=== PATIENT | male | born 1975 | race Caucasian/White ===

== ENCOUNTER 2019-06-08 16:23 | Outpatient (REF) | payer SELFPAY | END 2019-06-08 16:24 | disposition home or self-care (01) | LOC: LAB 16:23 | PROVIDERS: Visit Provider Nurse Practitioner Family | DX: Z01.89 Encounter for other specified special examinations (principal) | CPT/HCPCS: 87086 ==

== ENCOUNTER 2019-06-11 09:26 | Outpatient (CLI) | payer SELFPAY ==
--- NOTE | 2019-06-11 | US_ITS ---
WS: [id number] ULTRASOUND RENAL TECHNIQUE: Ultrasound examination of both kidneys. CLINICAL INFORMATION: RIGHT FLANK PAIN COMPARISON: None. FINDINGS: RIGHT: Tiny nonobstructing calyceal tip calculi Right kidney is normal in size and appearance. Echogenicity: Normal. Hydronephrosis: None. Perinephric fluid: None. Right kidney measures: 10.3 cm x 5.1 cm x 5.2 cm. LEFT: Tiny nonobstructing calyceal tip calculi Left kidney is normal in size and appearance Echogenicity: Normal. Hydronephrosis: None Perinephric fluid: None. Left kidney measures: 10.9 cm x 5.2 cm x 5.5 cm. Normal visualized aorta. US/US renal BI* [id number] IMPRESSION: 1. Both kidneys are normal in appearance. No hydronephrosis. 2. Tiny nonobstructing bilateral calyceal tip calculi. 3. Normal bladder
== END 2019-06-11 09:27 | disposition home or self-care (01) ==
LOC: RADOUTREAD 15:32
PROVIDERS: Visit Provider Nurse Practitioner Family
DX: Z76.89 Persons encountering health services in other specified circumstances (principal)

== ENCOUNTER 2019-06-11 10:51 | Outpatient (CLI) | payer SELFPAY ==
--- NOTE | 2019-06-11 11:00 | CT_ITS ---
WS: [id number] CT ABDOMEN PELVIS TECHNIQUE: Noncontrast CT of the abdomen and pelvis with coronal and sagittal reformatted images. CLINICAL INFORMATION: BILAT FLANK PAIN, NEPHROLITHASIS COMPARISON: None. DLP: [id number] scans at [facility] use at least one of these dose optimization techniques: automat ed exposure control; mA and/or kV adjustment per patient size (includes targeted exams where dose is matched to clinical indication); or iterative reconstruction. FINDINGS: Patchy airspace infiltrate in right lower lobe consistent with pneumonia measuring 5.8 x 3.1 CM. Carl mmend follow-up to resolution. Left lung base is well aerated. Noncontrast liver is normal. Normal ga llbladder. Noncontrast spleen is normal. Normal noncontrast pancreas. Adrenal glands are normal. Norm al GE junction. Tiny bilateral calyceal tip calculi. No obstructing renal or ureteral calculi. No hydronephrosis. Nor mal bladder. Normal caliber abdominal aorta. No abdominal lymphadenopathy. No evidence of small or large bowel obstruction. Prior appendectomy. No abdominal lymphadenopathy. In cidental fat-containing umbilical hernia. No inguinal lymphadenopathy. CT/CT kidney stone [id number] IMPRESSION: 1. Patchy airspace infiltrate in right lower lobe measuring 5.8x 3.1 cm consis tent with pneumonia. Recommend follow-up to resolution. 2. Tiny bilateral subcentimeter calyceal tip calculi. No obstructing renal or ureteral calculi. 3. No hydronephrosis. Normal bladder. 4. Prior appendectomy. 5. No other significant findings.
== END 2019-06-11 10:52 | disposition home or self-care (01) ==
LOC: RADWPI 10:56
PROVIDERS: Visit Provider Physician Assistant
DX: N00-N99 Diseases of the genitourinary system (principal); R91.8 Other nonspecific abnormal finding of lung field; N20.0 Calculus of kidney
CPT/HCPCS: 74176

== ENCOUNTER 2020-10-25 10:19 | Outpatient (CLI) | payer SELFPAY ==
[2020-10-25 11:21] LABS: Mean Corpuscular HGB Conc 30.1 g/dL (30.0-36.0); Mean Corpuscular Hemoglobin 27.4 pg (28.0-34.0); Mean Corpuscular Volume 91.1 fL (80-94); Red Cell Distribution Width 20.1 % (12.1-15.1); White Blood Count 3.3 10^3/uL (4.0-10.0)
[2020-10-25 11:39] LABS: Hematocrit 17.3 % (42.0-52.0); Hemoglobin 5.2 g/dL (11.7-16.6); Platelet Count 11 10^3/cmm (130-400); Slide Review Slide Review Perform
[2020-10-25 11:45] LABS: Absolute Segmented Neutrophil 0.9 10/cmm (1.6-7.1); Eosinophils 1 %; Lymphocytes 30 %; Lymphocytes Absolute 1.1 10^3/cmm (1.2-3.4); Monocytes Absolute 0.2 10^3/cmm (0.1-0.6); Segmented Neutrophils 28 %; Total Cells Counted 100 (0-100)
[2020-10-25 11:46] LABS: Anisocytosis 2+; Poikilocytosis 1+
[2020-10-25 11:47] LABS: Absolute Neutrophil 1.9 10^3/cmm (1.4-6.5); Platelet Estimate Decreased (Normal); Schistocytes Trace
[2020-10-25 11:48] LABS: LAB Peripheral Smear Sent for Review
[2020-10-25 12:02] LABS: Erythrocyte Sedimentation Rate 97 mm/hr (0-10)
[2020-10-25 12:05] LABS: Alanine Aminotransferase 14 U/L (0-41); Albumin Level 4.3 g/dL (3.5-5.2); Alkaline Phosphatase 84 IU/L (40-130); Anion Gap 16.6 (5-19); Aspartate Amino Transferase 19 U/L (0-40); Blood Urea Nitrogen 13 mg/dL (6-20); Calcium 8.6 mg/dL (8.5-10.5); Carbon Dioxide 21 mmol/L (22-29); Chloride 103 mmol/L (98-107); Globulin 3.1 g/dL (1.3-4.6); Glomerular Filtration Rate 73.1 mL/min (90-130); Glucose 117 mg/dL (65-115); Iron 14 ug/dL (59-158); Lactate Dehydrogenase 337 U/L (135-225); Osmolality Calculated 285 mOsm/kg (285-295); Percent Saturation 6.5 % (20-50); Potassium 3.6 mmol/L (3.5-5.1); Sodium 137 mmol/L (136-145); Total Bilirubin 1.3 mg/dL (0.15-1.2); Total Iron Binding Capacity 214 mcg/dl; Total Protein 7.4 g/dL (6.6-8.7); Unsaturated Iron Binding 200 ug/dL (112-347)
[2020-10-25 12:20] LABS: Vitamin B12 276 pg/mL (232-1245)
[2020-10-25 12:29] LABS: Folate Level 8.5 ng/mL (4.5-32.2)
--- NOTE | 2020-10-25 13:49 | ONC CON_ITS ---
Dr. Camacho New Patient Note Patient: Aden Swain Unit #: [id number]: 1975 Dicatated By: Coleman Camacho M.D.Date of Visit: Oct 25, 2020 Onc MED New Patient/Consult Referring Physician: Natalie Brian Chief Complaint: Pancytopenia. History of Present Illness: This is a 45-year-old man with severe pancytopenia. He has been in good general health. He had presented yesterday to [facility] with complaints of shortness of breath and fatigue. His CBC showed severe pancytopenia. The hemoglobin was low at 5.1 g with hematocrit 16.0%. The red cell indices were in the low normal range. The white blood cell count was 2500 with a differential showing 71% neutrophils, 22% lymphocytes, and 5% monocytes. Platelet count was also very low at 11,000. Comprehensive metabolic profile showed normal renal function with BUN 14 and creatinine 0.99 mg/dL. Bilirubin was slightly elevated 1.3 mg/dL. The liver enzymes were normal. TSH was normal at 0.566 ???IU/mL. He has a history of atrial fibrillation for which he had previously undergone cardioversion and subsequently a cardiac ablation procedure. He also has some allergic rhinitis, but he has had no other ongoing medical illnesses. He says he first started getting short of breath as far back as a year and 1/2 to 2 years ago, but it has worsened significantly over the past 6 months. During that time his had a progressive decline in his energy and activity tolerance, though he has still been doing light work. His ECOG score is 1. He has good appetite. His weight is down about 20 pounds over the past 6 months, but it does tend to fluctuate. He has been running low-grade fever in the range of 99 to 100 degrees and he has had some associated chills and sweating. He had treatment for sinus infection at the beginning of the year and about 2 months ago he was given antibiotic therapy for an infected cyst on his neck. With his appointment yesterday he began on Bactrim for a new cyst in his lower back area. Along with the shortness of breath he has noticed palpitations and chest discomfort with activity. He has no GI/ complaints other than occasional heartburn. He has normal aches and pains , mainly in the knees. Lately he has had some headaches with activity and he has been lightheaded at times. He has no numbness/paresthesia or other focal neurologic symptoms. He has noticed easy bruising during the past 2 months. He has had no other bleeding manifestations. Past Medical History: His medical history includes allergic rhinitis and a history of atrial fibrillation. Past Surgical History: His surgical/procedural history includes cardiac ablation in 2013, cardioversion in 2013, open reduction of right hand fracture in 2012, and appendectomy in 2005. Medications: Bactrim DS 1 Tablet (of 800-160 mg) Oral b.i.d., NyQuil Severe+ Vapocool Liquid Oral PRN Allergies: No Known Allergies. Social History: Mr. Swain is . 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 He is a non-smoker. He does not drink alcohol. Family History: His parents are still living, both age 68. His father has hypertension and atrial fibrillation. Her mother has thyroid disease and was recently found to be anemic. A 44-year-old brother has diabetes and Crohn's disease. He has no other siblings. Review Of Symptoms: Constitutional - He has had progressive decline in energy/activity tolerance, but he is still working. His appetite is good. His weight is down over the past 6 months, but does tend to fluctuate. He has had low-grade fever in the range of 99 to 100 degrees. He has some associated chills and sweating. ECOG score is 1, Eyes - No change in vision, but he reportedly has cataracts, ENMT - No hearing loss or tinnitus. He had treatment for sinus infection at the beginning of the year No mouth sores. No sore throat or difficulty swallowing, Hematologic/Lymphatic - He has been bruising more easily for the past 2 months. He has had no other bleeding, Respiratory - He has had increasing shortness of breath. No cough. No pleuritic pain or hemoptysis, Cardiovascular - He has had palpitations and some chest discomfort with activity, Gastrointestinal - No nausea or vomiting. He has occasional heartburn. No diarrhea or constipation. No blood in the stool or black stools, Genitourinary (M) - No dysuria or hematuria. No urinary frequency. No urgency or incontinence, Musculoskeletal - He has normal aches and pains , mainly in the knees, Integumentary - No skin rash. He had antibiotic therapy for a cyst on his neck 2 months ago, and he yesterday he was started on antibiotic for a cyst on the lower back, Neurologic - Recently he has had some headaches associated with activity. He has been lightheaded at times. No numbness or tingling. No other focal neurologic symptoms, Psychiatric - He has anxiety and he has had some depression. No insomnia. Vital Signs: Performed on Oct 25, 2020 11:05: 6, 6, 25.95, 2.23 sq.m, 75 in, 98 %, 106 /min (HIGH), 18 /min, 143/78 mm(hg) (HIGH), 98.2 F (LOW), and 207.6 lbs (HIGH). Physical Examination: Constitutional - He looks pale, but he does not appear acutely ill, Eyes - Sclerae nonicteric. Conjunctivae clear, ENMT - No lesions noted in the oral cavity, Neck - No mass or thyromegaly, Hematologic/Lymphatic - No cervical, clavicular, or axillary adenopathy, Respiratory - Lungs are clear with good air movement bilaterally, Cardiovascular - Heart rhythm is regular with a mild tachycardia. There is a II/ systolic murmur. There is no gallop or rub noted, Abdomen - Soft and non-tender. Liver and spleen are not enlarged. There is no abdominal mass or ascites noted. There is a nodule in the right groin area which is is mildly tender to palpation, Back/Spine - No spine or CVA tenderness noted, Extremities - No edema. Pedal pulses are palpable bilaterally, Integumentary - There is a cystic lesion with surrounding erythema in the lower back/sacral area, Neurologic - No focal neurologic deficits noted. Lab/Imaging: CBC shows hemoglobin 5.2 g with hematocrit 17.3%. The red cell indices are normal with MCV 91 and MCH 27. The white blood cell count is 3300. The platelet count is 11,000. The differential includes 28% segs, 29% bands, 4% metamyelocytes, 30% lymphocytes, 3% atypical lymphocytes, 5% monocytes, and 1% eosinophils. Sed rate is elevated at 97 mm/hour. Comprehensive metabolic profile again shows mildly elevated total bilirubin at 1.3 mg/dL with normal liver enzymes. LDH is mildly elevated at 337/225 U/L. The serum iron studies show low transferrin saturation of 6.5%. The B12 level is in the low normal range at 276 pg/mL and the folate level is normal at 8.5 ng/mL. The blood smear shows some dysplastic changes in the neutrophils, and there are occasional nucleated red cells, but I do not see any blasts. Problem List: 1. Severe pancytopenia. A specific cause has not been established but it would most likely be due to myelodysplastic syndrome. 2. He has started antibiotic coverage with Bactrim for what appears to be an infected sebaceous cyst on the lower back/sacral area. 3. He has a history of atrial fibrillation with previous cardioversion and a subsequent ablation procedure. Problems Addressed with this Encounter and Plan: Patient with severe pancytopenia. The specific cause has not been determined. Based on the clinical presentation, it would most likely be due to myelodysplastic syndrome, though at least some component of the anemia may be due to iron deficiency. The laboratory results and clinical implications were reviewed with the patient and his . He will need to undergo bone marrow aspiration/biopsy, and I am trying to get that arranged for tomorrow. I will include a FISH analysis for MDS and heme next generation sequencing study. He also is being scheduled for transfusion with CMV negative, irradiated PRBC, but those will not be available here until tomorrow. I will plan to transfuse platelets only as needed for bleeding, but in the meantime he is advised to avoid use of aspirin or other nonsteroidal agents. I will see him to discuss further management when the bone marrow results are available. Signed By: Coleman Camacho M.D. <<Signature on File>>
[2020-10-25 16:54] LABS: Homocysteine 10.72
[2020-10-26 12:12] VITALS: BP 136/68; PULSE 87; RESP 18; TEMP 36.8; O2SAT 100
[2020-10-26 12:27] VITALS: BP 133/70; PULSE 87; RESP 18; TEMP 36.9; O2SAT 100
[2020-10-26 12:42] VITALS: BP 137/71; PULSE 85; RESP 18; TEMP 36.6; O2SAT 100
[2020-10-26 13:40] VITALS: BP 144/71; PULSE 78; RESP 18; TEMP 36.8
[2020-10-26 15:17] LABS: Coronavirus Test Green County Not Detected
[2020-10-28] VITALS (9 sets, daily range): BP systolic 114–124; BP diastolic 58–74; PULSE 70–78; RESP 16–18; TEMP 36.2–37.3; O2SAT 99–100
[2020-10-29 07:07] LABS: Methylmalonic Acid 162 nmol/L (87-318)
== END 2020-10-25 10:20 | disposition home or self-care (01) ==
LOC: ONCMED 10:22
PROVIDERS: PCP Nurse Practitioner Family; Visit Provider Internal Medicine Medical Oncology
DX: D61.818 Other pancytopenia (principal); L72.3 Sebaceous cyst; I48.20 Chronic atrial fibrillation, unspecified; Z79.2 Long term (current) use of antibiotics; Z79.899 Other long term (current) drug therapy
CPT/HCPCS: 36415; 36430; 80053; 82607; 82746; 83090; 83540; 83550; 83615; 83921; 85007; 85025; 85651; 86850; 86900; 86920; 87635; 99203

== ENCOUNTER 2020-10-26 06:36 | Outpatient (CLI) | payer SELFPAY ==
[2020-10-26] MEDS: acetaminophen 325 mg Tablet 650 MG PO (08:30)
[2020-10-26] MEDS: diphenhydrAMINE 25 mg Capsule PO (08:30)
[2020-10-26] MEDS: sodium chloride 0.9% 250 ML 999 ML IV (08:55)
[2020-10-26 16:17] VITALS: BP 124/68; PULSE 86; RESP 18; TEMP 36.5; O2SAT 99
[2020-11-03 10:31] LABS: Miscellaneous Test See Scanned Lab Rpt
== END 2020-10-26 06:37 | disposition home or self-care (01) ==
LOC: ONCMED 06:38
PROVIDERS: PCP Nurse Practitioner Family; Visit Provider Internal Medicine Medical Oncology
DX: D61.818 Other pancytopenia (principal); L72.3 Sebaceous cyst; I48.20 Chronic atrial fibrillation, unspecified; Z79.2 Long term (current) use of antibiotics; Z79.899 Other long term (current) drug therapy
CPT/HCPCS: 88184; 88185; 88237; 88264; J7050

== ENCOUNTER 2020-10-26 11:11 | Day surgery (SDC) | payer SELFPAY ==
[2020-10-26 11:31] VITALS: BP 149/75; PULSE 89; RESP 18; TEMP 36.8; O2SAT 99; BMI 25.4
[2020-10-26] MEDS: sodium chloride 0.9% 1,000 ML 30 ML IV (11:47)
--- NOTE | 2020-10-26 13:31 | ANES.PREANE2 ---
Pre-Anesthetic Assessment Pre-Anesthetic Assessment: Height/Weight: Height 1.93 m Weight 94.801 kg Temp Pulse Resp BP Pulse Ox 98.3 F 89 18 149/75 99 10/26/20 11:31 10/26/20 11:31 10/26/20 11:31 10/26/20 11:31 10/26/20 11:31 Preop Diagnosis: pancyotopenia Proposed Procedure: Operation Date: 10/26/20 12:00 Proposed Procedures p Bone Marrow Biospy With Aspiration(Not Applicable) - Janina Muñoz MD Familial anesthetic complications: None Was Beta Arvind taken within 24 hours: N/A Was Clonidine taken within 24 hours: N/A Last intake: Banana at 0730 Water at 1000 Social: Social History: No alcohol and No tobacco Exam: Pre-Anes Outpt Exam: alert, oriented x 3, clear to auscultation bilaterally and regular rate & rhythm Airway: Cervical ROM: WNL MP: 2 Dentition: Full Anesthetic Plan: ASA status: 4 Anesthesia: MAC Risk of > 500 ml blood loss (7ml/kg in children): No Meds/Allergies Current Medications: Current Medications Generic Name Dose Route Start Last Admin Trade Name Freq PRN Reason Stop Dose Admin Sodium Chloride 1,000 mls @ 30 ml s/hr 10/26/20 11:15 10/26/20 11:47 Sodium Chloride 0.9% IV 10/27/20 11:14 30 mls/hr .Q24H SHAWN Administration Data Anesthesia Cardiac Studies: No Data to Display
--- NOTE | 2020-10-26 14:02 | P.PCN_ITS ---
Bone Marrow Biopsy Bone Marrow Biopsy: I was consulted by [] office regarding bone marrow biopsy on [Willis Swain]. Briefly, the patient is a [45] year old [male] with [pancytopenia]. In the Outpatient Services Department, with nursing staff and laboratory technologists in attendance, the procedure was discussed with the patient. Appropriate consent form had been signed. Appropriate alternatives, benefits and risks of procedure were discussed with the patient and he was pre- operatively assessed with a history and physical by myself and cleared for the biopsy procedure. The patient did request IV sedation and that was provided by the Anesthesia Department. Under aseptic condition right posterior iliac area was cleaned and prepped, local anesthesia was given, about 15 cc of bone marrow aspirate and core biopsy was obtained, hemostasis was obtained, patient tolerated procedure well, specimen was sent for routine histopathology, flow cytometry, cytogenetics, FISH for MDS. Postprocedure nurse instructions were given Thank you for allowing me to participate in this patient's care and diagnosis. 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
[2020-10-26 14:04] VITALS: BP 107/48; PULSE 78; RESP 18; TEMP 36.6; O2SAT 100
--- NOTE | 2020-10-26 14:07 | ANE.PACU2 ---
Inpatient post-anesthesia follow up: Airway intact: Yes Vital signs: Temperature 98.3 F Pulse Rate 89 Respiratory Rate 18 Blood Pressure 149/75 Pulse Oximetry 99 Oxygen Delivery Me thod Room Air Oxygen Flow Rate Fraction of Inspir ed Oxygen Hydration adequate: Yes Nausea and vomiting: No Pain level: 1 Mental status: Baseline
[2020-10-26 14:33] VITALS: BP 119/53; PULSE 77; RESP 18; O2SAT 100
[2020-10-26 14:49] VITALS: BP 123/65; PULSE 73; RESP 18; O2SAT 100
--- NOTE | 2020-10-26 14:55 | SUR.PHASEII ---
Discharge instructions given. Pt to follow up with Dr. Camacho tomorrow at 2 pm for repeat CBC. IV's to right and left arm to remain in place due to further transfusions needed. Dressing to right hip remains dry and intact with no bleeding or hematoma formation noted. This nurse instructed significant other that someone will need to stay with pt overnight and check bandage frequently for bleeding. VSS. Pt off floor via wheelchair to be taken home by significant other.
== END 2020-10-26 15:00 | disposition home or self-care (01) ==
PROVIDERS: PCP Nurse Practitioner Family; Visit Provider Internal Medicine Hematology & Oncology
PROC: 07DT3ZX Extraction of Bone Marrow, Percutaneous Approach, Diagnostic (ICD-10-PCS; CPT 38222; principal; 2020-10-26 12:00)
DX: D61.818 Other pancytopenia (principal)
CPT/HCPCS: 36415; 38222; 88305; 96360; 96361; J2704; J7030; P9058

== ENCOUNTER 2020-11-16 08:08 | Outpatient (RCR) | payer SELFPAY ==
[2020-10-27 15:25] LABS: Basophils % 1.2 %; Eosinophils % 0.6 %; Hematocrit 21.2 % (42.0-52.0); Hemoglobin 6.8 g/dL (11.7-16.6); Lymphocytes # 0.7 10^3/uL (0.8-4.8); Mean Corpuscular HGB Conc 32.1 g/dL (30.0-36.0); Mean Corpuscular Volume 87.2 fL (80-94); Monocytes # 0.1 10^3/uL (0.2-0.9); Monocytes % 5.8 %; Neutrophils % 45.6 %; Nucleated Red Blood Cells % 1.2 %; Red Blood Count 2.43 10^6/uL (4.1-5.3); Red Cell Distribution Width 18.6 % (12.1-15.1); White Blood Count 1.7 10^3/uL (4.0-10.0)
[2020-10-27 15:50] LABS: Slide Review Slide Review Perform
[2020-10-27 15:51] LABS: Neutrophils # 0.79 10^3/uL (1.8-7.7); Platelet Count 8 10^3/cmm (130-400)
[2020-10-28] MEDS: diphenhydrAMINE 25 mg Capsule PO (08:30)
[2020-10-28] MEDS: sodium chloride 0.9% 250 ML 999 ML IV (11:45)
[2020-10-28] MEDS: FUROsemide 10 mg/mL SDV 2mL 20 MG IV (12:00)
[2020-10-31 08:41] LABS: Basophils % 1.5 %; Eosinophils % 0.8 %; Hematocrit 27.5 % (42.0-52.0); Hemoglobin 8.9 g/dL (11.7-16.6); Lymphocytes # 0.8 10^3/uL (0.8-4.8); Lymphocytes % 63.6 %; Mean Corpuscular HGB Conc 32.4 g/dL (30.0-36.0); Mean Corpuscular Hemoglobin 28.2 pg (28.0-34.0); Monocytes # 0.1 10^3/uL (0.2-0.9); Monocytes % 6.1 %; Nucleated Red Blood Cells % 0 %; Red Blood Count 3.16 10^6/uL (4.1-5.3); Red Cell Distribution Width 15.9 % (12.1-15.1); White Blood Count 1.3 10^3/uL (4.0-10.0)
[2020-10-31 09:30] LABS: Add RBC Morph Yes
[2020-10-31 09:32] LABS: Neutrophils # 0.33 10^3/uL (1.8-7.7); Platelet Count 7 10^3/cmm (130-400)
[2020-10-31 09:33] LABS: Anisocytosis 1+; Ovalocytes 1+; Poikilocytosis 2+; Slide Review Slide Review Perform
[2020-10-31 09:34] LABS: RBC Morph Comp Yes
[2020-11-02 16:39] LABS: Basophils % 1.6 %; Eosinophils % 0.5 %; Hematocrit 25.7 % (42.0-52.0); Hemoglobin 8.2 g/dL (11.7-16.6); Lymphocytes # 1.3 10^3/uL (0.8-4.8); Lymphocytes % 69.6 %; Mean Corpuscular HGB Conc 31.9 g/dL (30.0-36.0); Mean Corpuscular Hemoglobin 28.3 pg (28.0-34.0); Mean Corpuscular Volume 88.6 fL (80-94); Monocytes # 0.1 10^3/uL (0.2-0.9); Monocytes % 6.8 %; Neutrophils % 19.9 %; Nucleated Red Blood Cells % 0 %; Red Cell Distribution Width 15.8 % (12.1-15.1); White Blood Count 1.9 10^3/uL (4.0-10.0)
[2020-11-02 17:43] LABS: Neutrophils # 0.38 10^3/uL (1.8-7.7)
[2020-11-02 17:44] LABS: Platelet Count 5 10^3/cmm (130-400); Slide Review Slide Review Perform
[2020-11-04] VITALS (10 sets, daily range): BP systolic 101–128; BP diastolic 60–76; PULSE 68–75; RESP 18; TEMP 36.6–36.9; O2SAT 97–99
[2020-11-04 07:59] LABS: Basophils % 2.1 %; Eosinophils % 0.7 %; Hematocrit 25.3 % (42.0-52.0); Lymphocytes # 0.8 10^3/uL (0.8-4.8); Lymphocytes % 56.9 %; Mean Corpuscular HGB Conc 31.6 g/dL (30.0-36.0); Mean Corpuscular Hemoglobin 28.2 pg (28.0-34.0); Mean Corpuscular Volume 89.1 fL (80-94); Monocytes # 0.1 10^3/uL (0.2-0.9); Monocytes % 4.9 %; Neutrophils % 31.2 %; Nucleated Red Blood Cells % 0 %; Red Blood Count 2.84 10^6/uL (4.1-5.3); Red Cell Distribution Width 15.8 % (12.1-15.1); White Blood Count 1.4 10^3/uL (4.0-10.0)
[2020-11-04] MEDS: sodium chloride 0.9% 500 ML 999 ML IV (08:35)
[2020-11-04 08:36] LABS: Neutrophils # 0.45 10^3/uL (1.8-7.7); Platelet Count 9 10^3/cmm (130-400); Slide Review Slide Review Perform
[2020-11-04] MEDS: acetaminophen 325 mg Tablet 650 MG PO (08:40)
[2020-11-04] MEDS: diphenhydrAMINE 25 mg Capsule PO (08:40)
[2020-11-04] MEDS: FUROsemide 10 mg/mL SDV 2mL 20 MG IV (11:05)
[2020-11-07 10:40] LABS: Basophils % 2.5 %; Eosinophils % 1.9 %; Hematocrit 31.6 % (42.0-52.0); Hemoglobin 10.2 g/dL (11.7-16.6); Lymphocytes # 0.9 10^3/uL (0.8-4.8); Lymphocytes % 59.2 %; Mean Corpuscular HGB Conc 32.3 g/dL (30.0-36.0); Mean Corpuscular Hemoglobin 28.3 pg (28.0-34.0); Mean Corpuscular Volume 87.8 fL (80-94); Monocytes # 0.1 10^3/uL (0.2-0.9); Monocytes % 4.5 %; Nucleated Red Blood Cells % 0 %; Red Cell Distribution Width 14.7 % (12.1-15.1); White Blood Count 1.6 10^3/uL (4.0-10.0)
[2020-11-07 11:04] LABS: Slide Review Slide Review Perform
[2020-11-07 11:06] LABS: Neutrophils % 31.9 %; Platelet Count 12 10^3/cmm (130-400)
[2020-11-07 11:07] LABS: Neutrophils # 0.41 10^3/uL (1.8-7.7)
[2020-11-09 13:20] LABS: Basophils # 0.1 10^3/uL (0.0-0.1); Basophils % 3.2 %; Eosinophils % 0.6 %; Hematocrit 28.4 % (42.0-52.0); Hemoglobin 9.3 g/dL (11.7-16.6); Lymphocytes # 1.1 10^3/uL (0.8-4.8); Mean Corpuscular HGB Conc 32.7 g/dL (30.0-36.0); Mean Corpuscular Hemoglobin 28.4 pg (28.0-34.0); Mean Corpuscular Volume 86.6 fL (80-94); Monocytes # 0.1 10^3/uL (0.2-0.9); Monocytes % 5.2 %; Neutrophils % 15.5 %; Nucleated Red Blood Cells % 0 %; Red Blood Count 3.28 10^6/uL (4.1-5.3); Red Cell Distribution Width 14.3 % (12.1-15.1); White Blood Count 1.6 10^3/uL (4.0-10.0)
[2020-11-09 13:30] LABS: Neutrophils # 0.24 10^3/uL (1.8-7.7); Platelet Count 7 10^3/cmm (130-400)
[2020-11-11 08:19] LABS: Basophils % 3.1 %; Eosinophils % 0.8 %; Hematocrit 27.8 % (42.0-52.0); Hemoglobin 9.1 g/dL (11.7-16.6); Lymphocytes # 0.9 10^3/uL (0.8-4.8); Mean Corpuscular HGB Conc 32.7 g/dL (30.0-36.0); Mean Corpuscular Hemoglobin 28.3 pg (28.0-34.0); Mean Corpuscular Volume 86.6 fL (80-94); Monocytes # 0.1 10^3/uL (0.2-0.9); Monocytes % 4.7 %; Neutrophils % 17.1 %; Nucleated Red Blood Cells % 0 %; Red Blood Count 3.21 10^6/uL (4.1-5.3); Red Cell Distribution Width 14.2 % (12.1-15.1); White Blood Count 1.3 10^3/uL (4.0-10.0)
[2020-11-11 08:35] VITALS: BP 105/74; BP 132/79; PULSE 74; PULSE 76; RESP 18; TEMP 37.3; TEMP 37.4; O2SAT 98; O2SAT 99
[2020-11-11] MEDS: acetaminophen 325 mg Tablet 650 MG PO (08:45)
[2020-11-11] MEDS: diphenhydrAMINE 25 mg Capsule PO (08:45)
[2020-11-11 09:00] VITALS: BP 124/74; PULSE 72; RESP 18; TEMP 37.1; O2SAT 99
[2020-11-11 09:00] LABS: Platelet Count 4 10^3/cmm (130-400)
[2020-11-11 09:01] LABS: Neutrophils # 0.22 10^3/uL (1.8-7.7); Slide Review Slide Review Perform
[2020-11-14 09:08] LABS: Basophils % 2.1 %; Hematocrit 27.5 % (42.0-52.0); Hemoglobin 8.9 g/dL (11.7-16.6); Lymphocytes % 65.1 %; Mean Corpuscular HGB Conc 32.4 g/dL (30.0-36.0); Mean Corpuscular Hemoglobin 28.3 pg (28.0-34.0); Mean Corpuscular Volume 87.3 fL (80-94); Monocytes # 0.1 10^3/uL (0.2-0.9); Monocytes % 4.8 %; Neutrophils % 23.2 %; Nucleated Red Blood Cells % 0 %; Red Blood Count 3.15 10^6/uL (4.1-5.3); Red Cell Distribution Width 14.1 % (12.1-15.1); White Blood Count 1.5 10^3/uL (4.0-10.0)
[2020-11-14 09:27] LABS: Slide Review Slide Review Perform
[2020-11-14 09:31] LABS: Neutrophils # 0.34 10^3/uL (1.8-7.7); Platelet Count 13 10^3/cmm (130-400)
--- NOTE | 2020-11-15 17:24 | ONC FU_ITS ---
Dr. Caamcho Patient Follow-Up Note Patient: Aden Swain Unit #: [id number]: 1975 Dicatated By: Coleman Camacho M.D.Date of Visit:Nov 11, 2020 Onc Med Follow-up/Prog Note Chief Complaint: Myelodysplastic syndrome. History of Present Illness: This is a 45-year-old man with myelodysplastic syndrome (MDS with multilineage dysplasia). He had presented to [facility] with complaints of shortness of breath and fatigue. His CBC showed severe pancytopenia. The hemoglobin was low at 5.1 g with hematocrit 16.0%. The red cell indices were in the low normal range. The white blood cell count was 2500 with a differential showing 71% neutrophils, 22% lymphocytes, and 5% monocytes. Platelet count was also very low at 11,000. Comprehensive metabolic profile showed normal renal function with BUN 14 and creatinine 0.99 mg/dL. Bilirubin was slightly elevated 1.3 mg/dL. The liver enzymes were normal. TSH was normal at 0.566 ???IU/mL. I had seen him initially on 10/25/2020. He began on PRBC transfusion support. I initially did not transfuse platelets, as he clinically did not demonstrate a significant bleeding tendency. He continued antibiotic coverage for what appeared to be an infected cyst on his lower back. He underwent bone marrow aspiration/biopsy on 10/26/2020. The marrow was hypercellular estimated 90 to 100% with marked trilineage dyspoiesis. Blasts did not appear to be overtly increased, estimated at 2.5 to 3.5% by flow cytometry. Iron stores were increased, but ring sideroblasts were not identified. 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 Other reported cytogenetic abnormalities included add (9) (p 13), -12, add (12) (p 11.2), -13, add (15) (p11.2), -22, + 1-4mar [cp14]/46, xy[1]. A FISH panel for MDS was requested, but that study apparently was not done. I had also requested heme next generation sequencing, but as yet we have received no results, and the status of that study is unknown. He is seen today for review of the bone marrow findings and to discuss further management. He is still feeling pretty good generally. His ECOG score is 1. He still has the infected sebaceous cyst on the lower back, for which he has been on antibiotic coverage with Bactrim. He has continued to require PRBC transfusions, and during follow-up he also began platelet transfusions when his platelet count dropped below 10,000. He has had a mild bleeding tendency limited to some bruising and to a minor mucosal hemorrhage in the oral cavity on one occasion. He has a history of atrial fibrillation for which he had previously undergone cardioversion and subsequently a cardiac ablation procedure. He also has some allergic rhinitis, but he has had no other ongoing medical illnesses. He is a non-smoker. He is seen today for review of the bone marrow findings and to discuss further management. He is still feeling pretty good generally. His ECOG score is 1. He still has the infected sebaceous cyst on the lower back, for which he has been on antibiotic coverage with Bactrim. He has continued to require PRBC transfusions, and during follow-up he also began platelet transfusions when his platelet count dropped below 10,000. He has had a mild bleeding tendency limited to some bruising and to a minor mucosal hemorrhage in the oral cavity on one occasion. Medications: Bactrim DS 1 Tablet (of 800-160 mg) Oral b.i.d. Allergies: No Known Allergies. Vital Signs: Performed on Nov 11, 2020 08:34 Height - 75.00 in Temperature - 99.4 F (HIGH) Pulse - 76 /min Respiration - 18 /min BP - 132/79 mm(hg) O2 Sat - 99 % Pain - 0 Lab/Imaging: Test performed on Nov 11, 2020 08:06 WBC 1.3 10 3/uL RBC 3.21 10 6/uL HGB 9.1 g/dL HCT 27.8 % MCV 86.6 fL MCH 28.3 pg MCHC 32.7 g/dL RDW 14.2 % Platelet Count 4 10 3/cmm Neutrophils 0.22 10 3/uL Lymphocytes 0.9 10 3/uL Monocytes 0.1 10 3/uL Eosinophils 0.0 10 3/uL Basophils 0.0 10 3/uL Neutrophil % 17.1 % Lymphocyte % 68.0 % Monocyte % 4.7 % Eosinophil % 0.8 % Basophils % 3.1 % NRBC % 0 % CBC Slide Review Slide Review Perform SLIDE REVIEW AGREES WITH AUTOMATED RESULTS ST Problem List: 1. Myelodysplastic syndrome (MDS with multilineage dysplasia), very high risk by IPSS-R. 2. He has a history of atrial fibrillation with previous cardioversion and a subsequent ablation procedure. Problems Addressed with this Encounter and Plan: 1. Patient with myelodysplastic syndrome (MDS with multilineage dysplasia). He presented with severe pancytopenia and his bone marrow aspiration/biopsy showed hypercellular marrow with marked trilineage dysplasia. By FISH analysis he had complex cytogenetics and he was very high risk by IPSS-R. The bone marrow findings were reviewed with the patient and we discussed the clinic complications. Standard therapy would include an initial course of treatment with a hypomethylating agent or with a hypomethylating agent in combination with venetoclax. The latter would be preferred, in my opinion. In either case, at his age it would be desirable to then proceed with bone marrow transplant, depending on his response to treatment. His initial management has been somewhat problematic and that he is not had insurance coverage. He indicates that he is due to have some coverage beginning in November, but at this point the extent of that coverage is uncertain. In the meantime, I have been in contact with one of the bone marrow transplant physicians at [facility], and we are trying to arrange for an initial consultation there. In the meantime, he will continue transfusion support with PRBC and or platelets as needed. In addition, he will require placement of a central line for venous access for his treatment, and I will begin those arrangements as well. He will need to have a platelet pheresis immediately prior to that procedure. 2. His severely neutropenic and he has been antibiotic coverage with Bactrim for what appears to be an infected sebaceous cyst on the lower back/sacral area. He will continue his same antibiotic coverage as long as he remains afebrile. At this point I will have him also begin prophylaxis with acyclovir and fluconazole. Signed By: Coleman Camacho M.D. <<Signature on File>>
== END 2020-11-16 23:59 | disposition home or self-care (01) ==
LOC: ONCMED 08:08
PROVIDERS: PCP Nurse Practitioner Family; Visit Provider Internal Medicine Medical Oncology
DX: D46.A Refractory cytopenia with multilineage dysplasia (principal); D61.818 Other pancytopenia; I48.91 Unspecified atrial fibrillation; Z79.899 Other long term (current) drug therapy
CPT/HCPCS: 36415; 36430; 85025; 86850; 86900; 86920; 99215; J1940; J7040; J7050; P9053; P9058

== ENCOUNTER 2020-11-18 06:00 | Outpatient (RCR) | payer OTHER, SELFPAY | END 2020-12-17 23:59 | disposition home or self-care (01) | LOC: ONCMED 06:00 | PROVIDERS: PCP Nurse Practitioner Family; Visit Provider Internal Medicine Medical Oncology | DX: D46.A Refractory cytopenia with multilineage dysplasia (principal); D61.818 Other pancytopenia; Z79.899 Other long term (current) drug therapy | CPT/HCPCS: 96374 ==

== ENCOUNTER 2020-12-01 05:46 | Outpatient (RCR) | payer OTHER, SELFPAY ==
[2020-11-16 08:59] LABS: Basophils % 3.3 %; Eosinophils % 2.5 %; Hematocrit 24.7 % (42.0-52.0); Hemoglobin 8.2 g/dL (11.7-16.6); Lymphocytes # 0.8 10^3/uL (0.8-4.8); Lymphocytes % 67.5 %; Mean Corpuscular HGB Conc 33.2 g/dL (30.0-36.0); Mean Corpuscular Hemoglobin 28.5 pg (28.0-34.0); Mean Corpuscular Volume 85.8 fL (80-94); Monocytes # 0.1 10^3/uL (0.2-0.9); Monocytes % 6.7 %; Neutrophils % 17.5 %; Nucleated Red Blood Cells % 0 %; Red Blood Count 2.88 10^6/uL (4.1-5.3); Red Cell Distribution Width 13.9 % (12.1-15.1); White Blood Count 1.2 10^3/uL (4.0-10.0)
[2020-11-16 09:33] LABS: Neutrophils # 0.21 10^3/uL (1.8-7.7); Platelet Count 8 10^3/cmm (130-400)
[2020-11-16 09:34] LABS: Slide Review Slide Review Perform
[2020-11-18] VITALS (12 sets, daily range): BP systolic 114–142; BP diastolic 62–81; PULSE 70–80; RESP 18; TEMP 36.6–37.6; O2SAT 97–100
[2020-11-18] MEDS: acetaminophen 325 mg Tablet 650 MG PO (08:30)
[2020-11-18] MEDS: diphenhydrAMINE 25 mg Capsule PO (08:40)
[2020-11-18] MEDS: sodium chloride 0.9% 250 ML 999 ML IV (08:40)
[2020-11-18] MEDS: FUROsemide 10 mg/mL SDV 2mL 20 MG IV (11:10)
[2020-11-22 08:03] LABS: Basophils % 1.7 %; Eosinophils % 0.8 %; Hematocrit 28.6 % (42.0-52.0); Hemoglobin 9.6 g/dL (11.7-16.6); Lymphocytes # 0.8 10^3/uL (0.8-4.8); Lymphocytes % 70.6 %; Mean Corpuscular HGB Conc 33.6 g/dL (30.0-36.0); Mean Corpuscular Hemoglobin 28.1 pg (28.0-34.0); Mean Corpuscular Volume 83.6 fL (80-94); Monocytes # 0.1 10^3/uL (0.2-0.9); Neutrophils % 20.2 %; Nucleated Red Blood Cells % 0 %; Red Blood Count 3.42 10^6/uL (4.1-5.3); Red Cell Distribution Width 14.5 % (12.1-15.1); White Blood Count 1.2 10^3/uL (4.0-10.0)
[2020-11-22 09:35] LABS: Neutrophils # 0.24 10^3/uL (1.8-7.7); Platelet Count 10 10^3/cmm (130-400)
[2020-11-22 09:37] LABS: Slide Review Slide Review Perform
[2020-11-24 14:09] LABS: Basophils % 1.5 %; Eosinophils % 0.7 %; Hemoglobin 8.9 g/dL (11.7-16.6); Lymphocytes # 0.8 10^3/uL (0.8-4.8); Lymphocytes % 61.2 %; Mean Corpuscular Hemoglobin 27.9 pg (28.0-34.0); Mean Corpuscular Volume 84.6 fL (80-94); Monocytes # 0.1 10^3/uL (0.2-0.9); Monocytes % 4.5 %; Neutrophils % 27.6 %; Nucleated Red Blood Cells % 0 %; Positive C 1; Positive M 1; Red Blood Count 3.19 10^6/uL (4.1-5.3); Red Cell Distribution Width 14.2 % (12.1-15.1); White Blood Count 1.3 10^3/uL (4.0-10.0)
[2020-11-24 14:21] LABS: Slide Review Slide Review Perform
[2020-11-24 14:23] LABS: Neutrophils # 0.37 10^3/uL (1.8-7.7); Platelet Count 3 10^3/cmm (130-400)
[2020-11-25 08:45] VITALS: BP 129/76; PULSE 77; RESP 18; TEMP 35.8; O2SAT 99
[2020-11-25 08:55] VITALS: BP 128/74; PULSE 78; RESP 18; TEMP 36.2; O2SAT 100
[2020-11-25] MEDS: acetaminophen 325 mg Tablet 650 MG PO (08:55)
[2020-11-25] MEDS: diphenhydrAMINE 25 mg Capsule PO (08:55)
[2020-11-28] MEDS: sodium chloride 0.9% 250 ML IV (08:20)
[2020-11-28 08:36] LABS: Basophils % 1.1 %; Eosinophils % 1.1 %; Hematocrit 24.6 % (42.0-52.0); Hemoglobin 8.1 g/dL (11.7-16.6); Lymphocytes # 0.6 10^3/uL (0.8-4.8); Lymphocytes % 58.9 %; Mean Corpuscular HGB Conc 32.9 g/dL (30.0-36.0); Mean Corpuscular Hemoglobin 27.8 pg (28.0-34.0); Mean Corpuscular Volume 84.5 fL (80-94); Monocytes # 0.1 10^3/uL (0.2-0.9); Monocytes % 7.4 %; Neutrophils % 28.3 %; Nucleated Red Blood Cells % 0 %; Positive C 1; Positive M 1; Red Blood Count 2.91 10^6/uL (4.1-5.3); Red Cell Distribution Width 14.1 % (12.1-15.1)
[2020-11-28 09:00] LABS: Alanine Aminotransferase 16 U/L (0-41); Albumin Level 4.2 g/dL (3.5-5.2); Alkaline Phosphatase 97 IU/L (40-130); Anion Gap 15.6 (5-19); Aspartate Amino Transferase 20 U/L (0-40); Blood Urea Nitrogen 17 mg/dL (6-20); Calcium 8.7 mg/dL (8.5-10.5); Carbon Dioxide 21 mmol/L (22-29); Chloride 104 mmol/L (98-107); Globulin 2.6 g/dL (1.3-4.6); Glomerular Filtration Rate 73.1 mL/min (90-130); Glucose 156 mg/dL (65-115); Osmolality Calculated 289 mOsm/kg (285-295); Potassium 3.6 mmol/L (3.5-5.1); Sodium 137 mmol/L (136-145); Total Bilirubin 0.6 mg/dL (0.15-1.2); Total Protein 6.8 g/dL (6.6-8.7)
[2020-11-28 09:13] LABS: Platelet Count 3 10^3/cmm (130-400)
[2020-11-28 09:14] LABS: Neutrophils # 0.27 10^3/uL (1.8-7.7)
[2020-11-28] MEDS: ondansetron 2 mg/ML SDV 2 mL 8 MG IVP (10:25)
--- NOTE | 2020-11-28 19:46 | ONC FU_ITS ---
Dr. Camacho Patient Follow-Up Note Patient: Aden Swain Unit #: [id number]: 1975 Dicatated By: Coleman Camacho M.D.Date of Visit:Nov 28, 2020 Onc Med Follow-up/Prog Note Chief Complaint: Myelodysplastic syndrome. History of Present Illness: This is a 45-year-old man with myelodysplastic syndrome (MDS with multilineage dysplasia). He had presented to [facility] with complaints of shortness of breath and fatigue. His CBC showed severe pancytopenia. The hemoglobin was low at 5.1 g with hematocrit 16.0%. The red cell indices were in the low normal range. The white blood cell count was 2500 with a differential showing 71% neutrophils, 22% lymphocytes, and 5% monocytes. Platelet count was also very low at 11,000. Comprehensive metabolic profile showed normal renal function with BUN 14 and creatinine 0.99 mg/dL. Bilirubin was slightly elevated 1.3 mg/dL. The liver enzymes were normal. TSH was normal at 0.566 ???IU/mL. I had seen him initially on 10/25/2020. He began on PRBC transfusion support. I initially did not transfuse platelets, as he clinically did not demonstrate a significant bleeding tendency. He continued antibiotic coverage for what appeared to be an infected cyst on his lower back. He underwent bone marrow aspiration/biopsy on 10/26/2020. The marrow was hypercellular estimated 90 to 100% with marked trilineage dyspoiesis. Blasts did not appear to be overtly increased, estimated at 2.5 to 3.5% by flow cytometry. Iron stores were increased, but ring sideroblasts were not identified. 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 Other reported cytogenetic abnormalities included add (9) (p 13), -12, add (12) (p 11.2), -13, add (15) (p11.2), -22, + 1-4mar [cp14]/46, xy[1]. A FISH panel for MDS was requested, but that study apparently was not done. I had also requested heme next generation sequencing, but as yet we have received no results, and the status of that study is unknown. His initial management was complicated fact that he was not insured, and there was no opportunity for referral to a transplant center. By the time the bone marrow results have apparently become available, he did have an insurance policy in place, which mandated that use [facility] as a tertiary referral center. As such, I was able to speak with a physician and there bone marrow transplant division, and he was recommended to begin treatment with a hypomethylating as monotherapy as opposed to a venetoclax containing combination regimen. During this time, he remained severely pancytopenic with requirement for PRBC and platelet transfusions. He also was maintained on antibiotic prophylaxis. His medical history includes atrial fibrillation for which he had previously undergone cardioversion and subsequently a cardiac ablation procedure. He also has some allergic rhinitis, but he has had no other ongoing medical illnesses. He is a non-smoker. He is seen today for initiation of treatment with decitabine. With the transfusions, he has been feeling pretty good generally. He does have fatigue, but he is working when he feels like it. His ECOG score is 1. He has good appetite. He has not had fever. He occasionally has heat flashes/sweating at night. He has had some mouth sores, but he has been managing that adequately with salt/soda rinses. He has no shortness of breath, cough, or chest pain. He has no GI or complaints. He has no significant joint or bone pain. He has just occasional slight headache and he has occasional orthostatic lightheadedness. He has no numbness/paresthesia or other focal neurologic symptoms. He has had some bruising, but no other bleeding manifestations. Medications: Bactrim DS 1 Tablet (of 800-160 mg) Oral b.i.d., Multi Vitamin Daily Tablet Oral daily Allergies: No Known Allergies. Vital Signs: Performed on Nov 28, 2020 08:53 Height - 75.00 in Weight - 203.8 lbs (LOW) BSA - 2.21 sq.m BMI - 25.47 Temperature - 99.9 F (HIGH) Pulse - 90 /min Respiration - 18 /min BP - 153/80 mm(hg) (HIGH) O2 Sat - 98 % Pain - 0 Fatigue - 5 Physical Examination: Constitutional - He does not appear acutely ill, Eyes - Sclerae nonicteric. Conjunctivae clear, ENMT - There are a small hemorrhages in the buccal mucosa on both sides, Hematologic/Lymphatic - No cervical, clavicular, or axillary adenopathy, Respiratory - Lungs are clear with good air movement bilaterally, Cardiovascular - Heart rhythm is regular. There is no murmur, gallop, or rub noted, Abdomen - Soft. Liver and spleen are not enlarged. There is no abdominal mass or ascites noted and there is no inguinal adenopathy, Extremities - No edema. There are scattered ecchymoses present. There are no petechiae noted, Integumentary - There is a persistent cystic lesion with surrounding erythema in the lower back/sacral area, Neurologic - No focal neurologic deficits noted. Lab/Imaging: Test performed on Nov 28, 2020 08:18 Sodium 137 mmol/L Potassium 3.6 mmol/L Chloride 104 mmol/L CO2 21 mmol/L Anion Gap 15.6 BUN 17 mg/dL Creatinine 1.1 mg/dL Cr Clearance (Est) 115.3300 mL/min eGFR 73.1 mL/min Glucose 156 mg/dL Osmolality - Calculated 289 mOsm/kg Calcium 8.7 mg/dL Protein, Total 6.8 g/dL Albumin 4.2 g/dL Globulin 2.6 g/dL Bilirubin, Total 0.6 mg/dL ALT (SGPT) 16 U/L AST (SGOT) 20 U/L Alkaline Phosphatase 97 IU/L WBC 1.0 10 3/uL RBC 2.91 10 6/uL HGB 8.1 g/dL HCT 24.6 % MCV 84.5 fL MCH 27.8 pg MCHC 32.9 g/dL RDW 14.1 % Platelet Count 3 10 3/cmm Neutrophils 0.27 10 3/uL Lymphocytes 0.6 10 3/uL Monocytes 0.1 10 3/uL Eosinophils 0.0 10 3/uL Basophils 0.0 10 3/uL Neutrophil % 28.3 % Lymphocyte % 58.9 % Monocyte % 7.4 % Eosinophil % 1.1 % Basophils % 1.1 % NRBC % 0 % Antibody Screen (Gel) NEGATIVE Problem List: 1. Myelodysplastic syndrome (MDS with multilineage dysplasia), very high risk by IPSS-R. 2. He has a history of atrial fibrillation with previous cardioversion and a subsequent ablation procedure. Problems Addressed with this Encounter and Plan: 1. Patient with myelodysplastic syndrome (MDS with multilineage dysplasia). He presented with severe pancytopenia and his bone marrow aspiration/biopsy showed hypercellular marrow with marked trilineage dysplasia. By FISH analysis he had complex cytogenetics and he was very high risk by IPSS-R. His initial management was somewhat problematic in that he had no insurance coverage, and it did result in some treatment delay. However, given the bone marrow findings, he will now start treatment with decitabine 20 mg/m??? by IV infusion daily for 5 days. Blood counts will be monitored twice weekly. He will continue transfusion support for the anemia and thrombocytopenia. He will continue antibiotic coverage with Augmentin and he will also continue prophylaxis with Bactrim. In addition, I am now going to add additional prophylaxis with acyclovir and fluconazole. He will be scheduled for a follow-up visit in 1 week. 2. Arrangements are being made for central line placement, and he will require prophylactic platelet pheresis and antibiotic coverage for that procedure. Signed By: Coleman Camacho M.D. <<Signature on File>>
[2020-11-29] MEDS: sodium chloride 0.9% 250 ML IV (08:30)
[2020-11-29] MEDS: diphenhydrAMINE 25 mg Capsule PO (08:30)
[2020-11-29] MEDS: acetaminophen 325 mg Tablet 650 MG PO (08:30)
[2020-11-29 08:55] VITALS: BP 110/66; PULSE 81; RESP 18; TEMP 36.9; O2SAT 98
[2020-11-29 09:10] VITALS: BP 117/72; PULSE 80; RESP 18; TEMP 37; O2SAT 98
[2020-11-29] MEDS: FUROsemide 10 mg/mL SDV 2mL 20 MG IV (10:45)
[2020-11-29] MEDS: ondansetron 2 mg/ML SDV 2 mL 8 MG IVP (12:10)
[2020-11-30] MEDS: ondansetron 2 mg/ML SDV 2 mL 8 MG IVP (08:15)
[2020-11-30] MEDS: sodium chloride 0.9% 250 ML IV (08:15)
[2020-12-01] MEDS: sodium chloride 0.9% 250 ML IV (08:30)
[2020-12-01 08:39] LABS: Basophils % 0.8 %; Eosinophils % 0.8 %; Hematocrit 28.8 % (42.0-52.0); Hemoglobin 9.6 g/dL (11.7-16.6); Lymphocytes # 0.9 10^3/uL (0.8-4.8); Mean Corpuscular HGB Conc 33.3 g/dL (30.0-36.0); Mean Corpuscular Hemoglobin 28.2 pg (28.0-34.0); Mean Corpuscular Volume 84.7 fL (80-94); Monocytes # 0.1 10^3/uL (0.2-0.9); Monocytes % 4.8 %; Neutrophils % 20.6 %; Nucleated Red Blood Cells % 0 %; Red Cell Distribution Width 13.9 % (12.1-15.1); White Blood Count 1.3 10^3/uL (4.0-10.0)
[2020-12-01] MEDS: ondansetron 2 mg/ML SDV 2 mL 8 MG IVP (08:45)
[2020-12-01 09:10] LABS: Slide Review Slide Review Perform
[2020-12-01 09:11] LABS: Neutrophils # 0.26 10^3/uL (1.8-7.7); Platelet Count 8 10^3/cmm (130-400)
[2020-12-01 14:35] LABS: Coronavirus Test Green County Not Detected
== END 2020-12-02 05:30 | disposition home or self-care (01) ==
LOC: ONCMED 05:46
PROVIDERS: PCP Nurse Practitioner Family; Visit Provider Internal Medicine Medical Oncology
DX: D46.A Refractory cytopenia with multilineage dysplasia (principal); D61.818 Other pancytopenia; I48.20 Chronic atrial fibrillation, unspecified; Z79.899 Other long term (current) drug therapy
CPT/HCPCS: 36415; 36430; 80053; 85025; 86850; 86900; 86920; 87635; 96375; 96413; 99214; J0894; J1940; J2405; J7050; P9053; P9058

== ENCOUNTER 2020-12-16 05:45 | Outpatient (RCR) | payer OTHER, SELFPAY ==
[2020-12-02] VITALS (7 sets, daily range): BP systolic 136–171; BP diastolic 75–92; PULSE 78–99; RESP 18; TEMP 36.3–36.4; O2SAT 98–99; BMI 24.7
[2020-12-02] MEDS: acetaminophen 325 mg Tablet 650 MG PO ×2 (06:37→13:12)
[2020-12-02] MEDS: diphenhydrAMINE 25 mg Capsule PO ×2 (06:37→13:12)
[2020-12-02] MEDS: sodium chloride 0.9% (100 ml) 100 ML 75 ML (08:10)
[2020-12-02] MEDS: sodium chloride 0.9% 250 ML IV (08:15)
[2020-12-02] MEDS: palonosetron 0.25 mg/5 mL SDV IVP (09:00)
[2020-12-05 10:03] LABS: Basophils % 0.8 %; Hematocrit 29.4 % (42.0-52.0); Hemoglobin 9.6 g/dL (11.7-16.6); Lymphocytes # 0.9 10^3/uL (0.8-4.8); Lymphocytes % 77.3 %; Mean Corpuscular HGB Conc 32.7 g/dL (30.0-36.0); Mean Corpuscular Hemoglobin 27.7 pg (28.0-34.0); Mean Corpuscular Volume 84.7 fL (80-94); Mean Platelet Volume 11.5 fL (7.4-10.4); Monocytes % 3.4 %; Neutrophils # 0.22 10^3/uL (1.8-7.7); Neutrophils % 18.5 %; Nucleated Red Blood Cells % 0 %; Platelet Count 38 10^3/cmm (130-400); Red Blood Count 3.47 10^6/uL (4.1-5.3); Red Cell Distribution Width 13.9 % (12.1-15.1); White Blood Count 1.2 10^3/uL (4.0-10.0)
[2020-12-06] MEDS: diphenhydrAMINE 25 mg Capsule PO (08:30)
[2020-12-06] MEDS: acetaminophen 325 mg Tablet 650 MG PO (08:35)
[2020-12-06 08:40] VITALS: BP 123/71; PULSE 71; RESP 18; TEMP 37.2; O2SAT 98
[2020-12-06 08:55] VITALS: BP 115/75; PULSE 80; RESP 18; TEMP 37; O2SAT 99
[2020-12-08 08:52] LABS: Basophils % 0.8 %; Hematocrit 28.7 % (42.0-52.0); Hemoglobin 9.4 g/dL (11.7-16.6); Lymphocytes # 1.1 10^3/uL (0.8-4.8); Lymphocytes % 83.2 %; Mean Corpuscular HGB Conc 32.8 g/dL (30.0-36.0); Mean Corpuscular Hemoglobin 27.6 pg (28.0-34.0); Mean Corpuscular Volume 84.2 fL (80-94); Monocytes % 1.5 %; Neutrophils % 12.2 %; Nucleated Red Blood Cells % 0 %; Red Blood Count 3.41 10^6/uL (4.1-5.3); Red Cell Distribution Width 13.5 % (12.1-15.1); White Blood Count 1.3 10^3/uL (4.0-10.0)
[2020-12-08 08:59] LABS: Neutrophils # 0.16 10^3/uL (1.8-7.7); Platelet Count 27 10^3/cmm (130-400)
[2020-12-08 09:07] LABS: Alanine Aminotransferase 20 U/L (0-41); Albumin Level 4.5 g/dL (3.5-5.2); Alkaline Phosphatase 103 IU/L (40-130); Anion Gap 15.1 (5-19); Aspartate Amino Transferase 21 U/L (0-40); Blood Urea Nitrogen 13 mg/dL (6-20); Calcium 9.1 mg/dL (8.5-10.5); Carbon Dioxide 23 mmol/L (22-29); Chloride 104 mmol/L (98-107); Globulin 2.8 g/dL (1.3-4.6); Glomerular Filtration Rate 73.1 mL/min (90-130); Glucose 99 mg/dL (65-115); Osmolality Calculated 286 mOsm/kg (285-295); Potassium 4.1 mmol/L (3.5-5.1); Sodium 138 mmol/L (136-145); Total Bilirubin 0.7 mg/dL (0.15-1.2); Total Protein 7.3 g/dL (6.6-8.7)
--- NOTE | 2020-12-08 17:48 | ONC FU_ITS ---
Dr. Camacho Patient Follow-Up Note Patient: Aden Swain Unit #: [id number]: 1975 Dicatated By: Coleman Camacho M.D.Date of Visit:Dec 08, 2020 Onc Med Follow-up/Prog Note Chief Complaint: Myelodysplastic syndrome. History of Present Illness: This is a 45-year-old man with myelodysplastic syndrome (MDS with multilineage dysplasia). He had presented to [facility] with complaints of shortness of breath and fatigue. His CBC showed severe pancytopenia. The hemoglobin was low at 5.1 g with hematocrit 16.0%. The red cell indices were in the low normal range. The white blood cell count was 2500 with a differential showing 71% neutrophils, 22% lymphocytes, and 5% monocytes. Platelet count was also very low at 11,000. Comprehensive metabolic profile showed normal renal function with BUN 14 and creatinine 0.99 mg/dL. Bilirubin was slightly elevated 1.3 mg/dL. The liver enzymes were normal. TSH was normal at 0.566 ???IU/mL. I had seen him initially on 10/25/2020. He began on PRBC transfusion support. I initially did not transfuse platelets, as he clinically did not demonstrate a significant bleeding tendency. He continued antibiotic coverage for what appeared to be an infected cyst on his lower back. He underwent bone marrow aspiration/biopsy on 10/26/2020. The marrow was hypercellular estimated 90 to 100% with marked trilineage dyspoiesis. Blasts did not appear to be overtly increased, estimated at 2.5 to 3.5% by flow cytometry. Iron stores were increased, but ring sideroblasts were not identified. 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 Other reported cytogenetic abnormalities included add (9) (p 13), -12, add (12) (p 11.2), -13, add (15) (p11.2), -22, + 1-4mar [cp14]/46, xy[1]. A FISH panel for MDS was requested, but that study apparently was not done. I had also requested heme next generation sequencing, but as yet we have received no results, and the status of that study is unknown. His initial management was complicated fact that he was not insured, and there was no opportunity for referral to a transplant center. By the time the bone marrow results have apparently become available, he did have an insurance policy in place, which mandated that use [facility] as a tertiary referral center. As such, I was able to speak with a physician and there bone marrow transplant division, and he was recommended to begin treatment with a hypomethylating as monotherapy as opposed to a venetoclax containing combination regimen. During this time, he remained severely pancytopenic with requirement for PRBC and platelet transfusions. He also was maintained on antibiotic prophylaxis. His medical history includes atrial fibrillation for which he had previously undergone cardioversion and subsequently a cardiac ablation procedure. He also has some allergic rhinitis, but he has had no other ongoing medical illnesses. He is a non-smoker. INTERIM HISTORY: He began cycle 1 of 5-day decitabine on 11/28/2020. He tolerated that treatment without acute toxicities. During that time he underwent placement of a Linda on central catheter. He received platelets immediately before and following the procedure, and he had no bleeding complications. He is seen for a follow-up visit. Thus far he is still been getting scheduled platelet pheresis twice weekly. His hemoglobin, though, has stabilized at over 9 g since his PRBC transfusion on 11/28/2020. He is feeling fine. He does have some fatigue, is able to do sedentary work. ECOG score is 1. He has good appetite. He has no fever or night sweats. His mouth sores have improved. He has no shortness of breath, cough, or chest pain. He has not had any nausea. He has had some mild constipation, adequately managed with prune juice. He has no complaints. He has no significant joint or bone pain. He has had some slight headaches. He has some mild orthostatic lightheadedness. He has no numbness/paresthesia or other focal neurologic symptoms. He has not been bruising is much. Medications: Bactrim DS 1 Tablet (of 800-160 mg) Oral b.i.d., Multi Vitamin Daily Tablet Oral daily Allergies: No Known Allergies. Vital Signs: Performed on Dec 08, 2020 13:05 Height - 75.00 in Weight - 200.8 lbs (LOW) BSA - 2.20 sq.m BMI - 25.10 Temperature - 98.2 F (LOW) Pulse - 101 /min (HIGH) Respiration - 18 /min BP - 128/80 mm(hg) O2 Sat - 98 % Pain - 0 Fatigue - 5 Physical Examination: Constitutional - He looks pretty good generally, Eyes - Sclerae nonicteric. Conjunctivae clear, ENMT - No lesions noted in the oral cavity, Hematologic/Lymphatic - No cervical, clavicular, or axillary adenopathy, Respiratory - Lungs are clear with good air movement bilaterally, Cardiovascular - Heart rhythm is regular. There is no murmur, gallop, or rub noted, Abdomen - Soft. Liver and spleen are not enlarged. There is no abdominal mass or ascites noted and there is no inguinal adenopathy, Extremities - No edema. There are a few scattered ecchymoses. There are no petechiae noted, Integumentary - The cystic lesion in the right lower back has improved significantly, Neurologic - No focal neurologic deficits noted. Lab/Imaging: Test performed on Dec 08, 2020 08:19 Sodium 138 mmol/L Potassium 4.1 mmol/L Chloride 104 mmol/L CO2 23 mmol/L Anion Gap 15.1 BUN 13 mg/dL Creatinine 1.1 mg/dL Cr Clearance (Est) 115.3300 mL/min eGFR 73.1 mL/min Glucose 99 mg/dL Osmolality - Calculated 286 mOsm/kg Calcium 9.1 mg/dL Protein, Total 7.3 g/dL Albumin 4.5 g/dL Globulin 2.8 g/dL Bilirubin, Total 0.7 mg/dL ALT (SGPT) 20 U/L AST (SGOT) 21 U/L Alkaline Phosphatase 103 IU/L WBC 1.3 10 3/uL RBC 3.41 10 6/uL HGB 9.4 g/dL HCT 28.7 % MCV 84.2 fL MCH 27.6 pg MCHC 32.8 g/dL RDW 13.5 % Platelet Count 27 10 3/cmm Neutrophils 0.16 10 3/uL Lymphocytes 1.1 10 3/uL Monocytes 0.0 10 3/uL Eosinophils 0.0 10 3/uL Basophils 0.0 10 3/uL Neutrophil % 12.2 % Lymphocyte % 83.2 % Monocyte % 1.5 % Eosinophil % 0.0 % Basophils % 0.8 % NRBC % 0 % Anti-D Positive / 4+ Blood Type AP Antibody Screen (Gel) NEGATIVE Problem List: 1. Myelodysplastic syndrome (MDS with multilineage dysplasia), very high risk by IPSS-R. 2. He has a history of atrial fibrillation with previous cardioversion and a subsequent ablation procedure. Problems Addressed with this Encounter and Plan: Patient with myelodysplastic syndrome (MDS with multilineage dysplasia). He presented with severe pancytopenia and his bone marrow aspiration/biopsy showed hypercellular marrow with marked trilineage dysplasia. By FISH analysis he had complex cytogenetics and he was very high risk by IPSS-R. His initial management was somewhat problematic in that he had no insurance coverage, and it did result in some treatment delay. However, on 11/28/2020 he began treatment with decitabine 20 mg/m??? by IV infusion daily for 5 days. He tolerated the treatment without acute toxicity. At this point he does appear to be showing some response, as his hemoglobin has stabilized at over 9 g following his PRBC transfusion on 11/28/2020 and his platelet count also appears to be increasing now. He remains severely neutropenic, but he has had no fever or other complications. He will return Saturday for CBC. He will be given further transfusions only as needed. I will see him again in 2 weeks, which time he will be due to start his second cycle of treatment. In the meantime, I am going to keep him on prophylaxis with Levaquin and also with acyclovir and fluconazole. His Bactrim will now be changed to twice daily on Mondays and . Signed By: Coleman Camacho M.D. <<Signature on File>>
[2020-12-12 08:43] LABS: Basophils % 0.9 %; Hematocrit 25.3 % (42.0-52.0); Hemoglobin 8.5 g/dL (11.7-16.6); Lymphocytes % 82.1 %; Mean Corpuscular HGB Conc 33.6 g/dL (30.0-36.0); Mean Corpuscular Hemoglobin 28.1 pg (28.0-34.0); Mean Corpuscular Volume 83.5 fL (80-94); Monocytes % 2.6 %; Neutrophils % 13.5 %; Nucleated Red Blood Cells % 0 %; Red Blood Count 3.03 10^6/uL (4.1-5.3); Red Cell Distribution Width 13.4 % (12.1-15.1); White Blood Count 1.2 10^3/uL (4.0-10.0)
[2020-12-12 09:43] LABS: Slide Review Slide Review Perform
[2020-12-12 09:44] LABS: Neutrophils # 0.16 10^3/uL (1.8-7.7); Platelet Count 2 10^3/cmm (130-400)
[2020-12-13] MEDS: acetaminophen 325 mg Tablet 650 MG PO (08:20)
[2020-12-13] MEDS: diphenhydrAMINE 25 mg Capsule PO (08:20)
[2020-12-13 08:43] VITALS: BP 127/74; PULSE 75; RESP 17; TEMP 36.9; O2SAT 98
[2020-12-13 08:55] VITALS: BP 115/78; PULSE 76; RESP 18; TEMP 37.2; O2SAT 99
[2020-12-13 09:05] VITALS: BP 115/78; PULSE 76; RESP 17; TEMP 37.2; O2SAT 99
[2020-12-15 09:35] LABS: Hematocrit 22.3 % (42.0-52.0); Hemoglobin 7.5 g/dL (11.7-16.6); Lymphocytes % 79.2 %; Mean Corpuscular HGB Conc 33.6 g/dL (30.0-36.0); Mean Corpuscular Hemoglobin 27.7 pg (28.0-34.0); Mean Corpuscular Volume 82.3 fL (80-94); Mean Platelet Volume 10.3 fL (7.4-10.4); Monocytes % 2.4 %; Neutrophils % 14.4 %; Nucleated Red Blood Cells % 0 %; Red Blood Count 2.71 10^6/uL (4.1-5.3); Red Cell Distribution Width 13.3 % (12.1-15.1); White Blood Count 1.3 10^3/uL (4.0-10.0)
[2020-12-15 10:06] LABS: Neutrophils # 0.18 10^3/uL (1.8-7.7); Platelet Count 15 10^3/cmm (130-400)
[2020-12-15 10:07] LABS: Slide Review Slide Review Perform
== END 2020-12-17 23:59 | disposition home or self-care (01) ==
LOC: ONCMED 05:45
PROVIDERS: PCP Nurse Practitioner Family; Visit Provider Internal Medicine Medical Oncology
DX: D46.A Refractory cytopenia with multilineage dysplasia (principal); D61.818 Other pancytopenia; D46.9 Myelodysplastic syndrome, unspecified; I48.91 Unspecified atrial fibrillation; Z79.899 Other long term (current) drug therapy
CPT/HCPCS: 36415; 36430; 36592; 71045; 80053; 85025; 86850; 86900; 86920; 96374; 96413; 99214; J0894; J1644; J2469; J3490; J7050; P9053; P9058

== ENCOUNTER 2020-12-18 11:07 | Emergency (ER) | payer OTHER, SELFPAY ==
[2020-12-18 11:42] VITALS: BP 151/97; PULSE 90; RESP 19; TEMP 36.8; O2SAT 95; BMI 24.4
[2020-12-18 11:53] VITALS: BP 147/91; PULSE 83; RESP 18; O2SAT 98
--- NOTE | 2020-12-18 11:54 | USR_ITS ---
PROCEDURE INFORMATION: Exam: US Duplex Left Upper Extremity Veins, Limited Exam date and time: 12/18/2020 11:54 AM Age: 45 years old Clinical indication: Pain; Arm, upper; Left; Additional info: S/P port placement, R/O shereen thrombus TECHNIQUE: Imaging protocol: Real-time Duplex ultrasound of the Left Upper Extremity with 2-D francis scale, color Doppler flow and spectral waveform analysis with image documentation. Limited exam focused on the left upper extremity veins. COMPARISON: No relevant prior studies available. FINDINGS: Left deep veins: Unremarkable. Axillary and brachial veins are patent throughout without thrombus. Normal Doppler waveforms. Normal compressibility and/or augmentation response. Visualized internal jugular and subclavian veins are patent. Left superficial veins: Unremarkable. Visualized cephalic and basilic veins are patent without thrombus. Soft tissues: Unremarkable. US/[place] [id number] IMPRESSION: No evidence of deep vein thrombosis.
--- NOTE | 2020-12-18 11:55 | PC.NURSE ---
Patient reports left arm pain starting yesterday. Reports placement of PICC line on the and received infusion in Saturday. Reports that pain travels down arm beginning from shoulder. Rates pain as a 7 and describes as throbbing.
--- NOTE | 2020-12-18 11:57 | W.ED.WOUNDLC ---
HPI - Wound/Laceration General: Chief Complaint: Wound/Laceration Stated Complaint: LEFT ARM PAIN, POST CENTRAL LINE PLACED Time Seen by Provider: 12/18/20 11:50 History of Present Illness: HPI narrative: 45-year-old male patient comes in today with complaints of left upper extremity discomfort. Patient had a central line port placed on the 16th for treatment of myelodysplastic disorder. Patient noticed some swelling to the left shoulder area and pain radiating down the arm he was concerned he may be developing a blood clot. Patient appears well. Patient appears no acute distress. Review of Systems General: Reports: 10 or more systems reviewed and unremarkable except in HPI and below Musc: Reports: other (Left upper extremity discomfort.) PFS ED PFSH: Medical History (Updated 12/18/20 @ 12:25 by GINA Graham) Atrial fibrillation MDS (myelodysplastic syndrome) Surgical History (Updated 12/01/20 @ 13:35 by Edison Zarate MD) History of appendectomy History of radiofrequency ablation (RFA) procedure for cardiac arrhythmia History of surgery on wrist Physical Exam Const: COMMON NORMALS: no acute distress and patient oriented x3 GENERAL APPEARANCE: cooperative HENMT: COMMON NORMALS: normocephalic and Normal external nose present HEAD & SCALP: normal to inspection and normocephalic NOSE: Normal external nose present MOUTH: Normal oral and palatal mucosa present Eye: GENERAL EYE: appearance normal, both eyes and all related structures Neck/C-Spine: COMMON NORMALS: full ROM Chest: COMMONS NORMALS: normal inspection of the chest Resp: COMMON NORMALS: normal respiratory effort EFFORT & INSPECTION: Yes able to speak in complete sentences Cardio: COMMON NORMALS: regular rate and regular rhythm RATE: regular rate RHYTHM: regular rhythm GI: COMMON NORMALS: non-tender Extremity: NARRATIVE EXTREMITY EXAM: Tenderness is noted in the right shoulder area with palpable swelling to the bursa of the shoulder. No significant swelling is noted distally on the left upper arm. Pulses are intact. Sensation is intact. Neuro: COMMON NORMALS: patient oriented x3 and moves all extremities Psych: COMMON NORMALS: mental status grossly normal and cooperative Skin: COMMON NORMALS: no rashes or lesions noted GENERAL SKIN EXAM: no rashes or lesions noted Course Vital Signs: Vital signs: Vital Signs Temperature 98.3 F 12/18/20 11:42 Pulse Rate 83 08/01/21 11:53 Respiratory Rate 18 12/18/20 11:53 Blood Pressure 147/91 12/18/20 11:53 Pulse Oximetry 98 12/18/20 11:53 MDM - Wound/Laceration MDM Narrative: Medical decision making narrative: 45-year-old male comes in today with complaints of anterior left shoulder discomfort. Patient recently got a central line placed into his left subclavian. On exam patient is some tenderness to the anterior left shoulder, no signs of swelling or redness is noted to the extremity. Differential diagnosis includes not limited to DVT, arthralgia, worried well. Ultrasound of the extremity was performed with no signs of DVT. I feel the patient's pain probably dated 2 more the joint and may be some mild bursitis. Recommend monitoring for redness and swelling of the extremity. Recommend using ice/heat and acetaminophen for the pain. Patient reported understanding agreed to plan. Discharge Plan Discharge Patient Disposition: Home Clinical Impression: Left anterior shoulder pain Condition: Stable Prescriptions: No Action sulfamethoxazole-trimethoprim 800-160 mg tablet 1 tab PO BID RF: 0 acetaminophen 500 mg Tablet 1,000 mg PO PRN RF: 0 decitabine See Rx Instructions .ROUTE .COMPLEX RF: 0 multivitamin Tablet 1 tab PO DAILY RF: 0 levofloxacin 500 mg Tablet 500 mg PO DAILY RF: 0 fluconazole 100 mg Tablet 100 mg PO BID RF: 0 acyclovir 400 mg Tablet 400 mg PO BID RF: 0 Discharge Orders: Discharge ED (Routine); Ordered 12/18/20 Ordered By: Kojo Blackburn Referrals: Akilah Mcclain, [employer] [Primary Care Provider] - Discharge Diet: Usual diet Discharge Activity: Increase activity as tolerated Patient Instructions: Opioid Safety Activity Restrictions/Additional Instructions: Ice or heat to the area for comfort. Drink plenty of water. Use acetaminophen for further pain relief. Monitor arm for swelling or redness. Follow-up with primary care as needed. Return to the ER for worsening symptoms or new concerns. Coding Level of Care Code ED Dial Polisher for Puja Longoria Exam Comprehensive
[2020-12-18 12:38] VITALS: BP 128/85; PULSE 84; RESP 16; O2SAT 98
== END 2020-12-18 12:38 | disposition home or self-care (01) ==
PROVIDERS: Emergency Provider Nurse Practitioner Family; PCP Nurse Practitioner Family
DX: M25.512 Pain in left shoulder (principal)
CPT/HCPCS: 93971; 99282

== ENCOUNTER 2020-12-19 06:14 | Outpatient (RCR) | payer OTHER, SELFPAY ==
[2020-12-19 08:49] LABS: Hematocrit 26.1 % (42.0-52.0); Hemoglobin 8.6 g/dL (11.7-16.6); Lymphocytes # 0.8 10^3/uL (0.8-4.8); Lymphocytes % 78.1 %; Mean Platelet Volume 9.6 fL (7.4-10.4); Monocytes % 3.1 %; Neutrophils % 17.8 %; Nucleated Red Blood Cells % 0 %; Red Blood Count 3.07 10^6/uL (4.1-5.3); Red Cell Distribution Width 13.3 % (12.1-15.1)
[2020-12-19 09:50] LABS: Neutrophils # 0.17 10^3/uL (1.8-7.7); Platelet Count 13 10^3/cmm (130-400)
== END 2020-12-20 14:37 | disposition home or self-care (01) ==
LOC: ONCMED 06:14
PROVIDERS: PCP Nurse Practitioner Family; Visit Provider Internal Medicine Medical Oncology
DX: D46.A Refractory cytopenia with multilineage dysplasia (principal); D61.818 Other pancytopenia; Z79.899 Other long term (current) drug therapy
CPT/HCPCS: 36415; 36592; 85025

== ENCOUNTER 2020-12-20 14:37 | Outpatient (CLI) | payer OTHER, SELFPAY ==
--- NOTE | 2020-12-20 14:42 | USCV_ITS ---
Aden Swain Age: 45 Gender: M : 1975 Exam Date: 12/20/2020 15:09 Ordering Phys: Coleman Camacho MD Technologist: RAMSEY [place]am Location[place] [facility] [place] Indication: post port X 2 weeks HISTORY: post port X two weeks PROCEDURES: The following venous structures were evaluated: internal jugular vein, subclavian vein, axillary vein, and brachial veins. In addition, the basilic vein, cephalic vein, radial vein, and ulnar vein. FINDINGS: The veins of the left upper extremity are readily compressible with normal venous flow dynamics including spontaneous flow, respiratory phasic variation and augmentation. CONCLUSIONS No left upper extremity DVT. Dr. Torrie Campbell DO (Electronically Signed) Final Date: 21 December 2020 07:47 S
== END 2020-12-20 14:38 | disposition home or self-care (01) ==
LOC: RAD 14:40
PROVIDERS: PCP Nurse Practitioner Family; Visit Provider Internal Medicine Medical Oncology
DX: M79.602 Pain in left arm (principal)
CPT/HCPCS: 93971

== ENCOUNTER 2021-01-17 05:44 | Outpatient (RCR) | payer OTHER, SELFPAY ==
[2020-12-21 08:30] LABS: Hematocrit 24.6 % (42.0-52.0); Hemoglobin 8.1 g/dL (11.7-16.6); Lymphocytes % 87.5 %; Mean Corpuscular HGB Conc 32.9 g/dL (30.0-36.0); Mean Corpuscular Volume 85.1 fL (80-94); Monocytes % 2.7 %; Neutrophils % 9.8 %; Nucleated Red Blood Cells % 0 %; Red Blood Count 2.89 10^6/uL (4.1-5.3); Red Cell Distribution Width 13.2 % (12.1-15.1); White Blood Count 1.1 10^3/uL (4.0-10.0)
[2020-12-21 08:58] LABS: Neutrophils # 0.11 10^3/uL (1.8-7.7); Platelet Count 5 10^3/cmm (130-400)
[2020-12-21 08:59] LABS: Slide Review Slide Review Perform
[2020-12-22] VITALS (10 sets, daily range): BP systolic 103–110; BP diastolic 53–68; PULSE 70–82; RESP 18; TEMP 36.6–37; O2SAT 100
[2020-12-22] MEDS: diphenhydrAMINE 25 mg Capsule PO (08:20)
[2020-12-22] MEDS: sodium chloride 0.9% 250 ML 999 ML IV (08:20)
[2020-12-22] MEDS: acetaminophen 325 mg Tablet 650 MG PO (08:30)
[2020-12-22] MEDS: FUROsemide 10 mg/mL SDV 2mL 20 MG IV (10:40)
[2020-12-26 10:20] LABS: Hematocrit 27.4 % (42.0-52.0); Hemoglobin 9.2 g/dL (11.7-16.6); Lymphocytes # 0.8 10^3/uL (0.8-4.8); Mean Corpuscular HGB Conc 33.6 g/dL (30.0-36.0); Mean Corpuscular Hemoglobin 28.8 pg (28.0-34.0); Mean Corpuscular Volume 85.6 fL (80-94); Mean Platelet Volume 10.1 fL (7.4-10.4); Monocytes % 1.1 %; Neutrophils % 11.7 %; Nucleated Red Blood Cells % 0 %; Red Cell Distribution Width 13.1 % (12.1-15.1)
[2020-12-26 10:28] LABS: Platelet Count 8 10^3/cmm (130-400); White Blood Count 0.9 10^3/uL (4.0-10.0)
[2020-12-26 10:29] LABS: Neutrophils # 0.11 10^3/uL (1.8-7.7)
[2020-12-26 10:45] LABS: Alanine Aminotransferase 17 U/L (0-41); Albumin Level 4.3 g/dL (3.5-5.2); Alkaline Phosphatase 92 IU/L (40-130); Anion Gap 15.9 (5-19); Aspartate Amino Transferase 21 U/L (0-40); Blood Urea Nitrogen 16 mg/dL (6-20); Calcium 9.2 mg/dL (8.5-10.5); Carbon Dioxide 23 mmol/L (22-29); Chloride 102 mmol/L (98-107); Globulin 2.9 g/dL (1.3-4.6); Glomerular Filtration Rate 66.1 mL/min (90-130); Glucose 128 mg/dL (65-115); Lactate Dehydrogenase 256 U/L (135-225); Osmolality Calculated 287 mOsm/kg (285-295); Potassium 3.9 mmol/L (3.5-5.1); Sodium 137 mmol/L (136-145); Total Protein 7.2 g/dL (6.6-8.7)
[2020-12-26] MEDS: sodium chloride 0.9% 250 ML 999 ML IV (12:15)
[2020-12-26] MEDS: ondansetron 2 mg/ML SDV 2 mL 8 MG IVP (12:15)
--- NOTE | 2020-12-26 20:15 | ONC FU_ITS ---
Dr. Camacho Patient Follow-Up Note Patient: Aden Swain Unit #: [id number]: 1975 Dicatated By: Coleman Camacho M.D.Date of Visit:Dec 26, 2020 Onc Med Follow-up/Prog Note Chief Complaint: Myelodysplastic syndrome. History of Present Illness: This is a 45-year-old man with myelodysplastic syndrome (MDS with multilineage dysplasia). He had presented to [facility] with complaints of shortness of breath and fatigue. His CBC showed severe pancytopenia. The hemoglobin was low at 5.1 g with hematocrit 16.0%. The red cell indices were in the low normal range. The white blood cell count was 2500 with a differential showing 71% neutrophils, 22% lymphocytes, and 5% monocytes. Platelet count was also very low at 11,000. Comprehensive metabolic profile showed normal renal function with BUN 14 and creatinine 0.99 mg/dL. Bilirubin was slightly elevated 1.3 mg/dL. The liver enzymes were normal. TSH was normal at 0.566 ???IU/mL. I had seen him initially on 10/25/2020. He began on PRBC transfusion support. I initially did not transfuse platelets, as he clinically did not demonstrate a significant bleeding tendency. He continued antibiotic coverage for what appeared to be an infected cyst on his lower back. He underwent bone marrow aspiration/biopsy on 10/26/2020. The marrow was hypercellular estimated 90 to 100% with marked trilineage dyspoiesis. Blasts did not appear to be overtly increased, estimated at 2.5 to 3.5% by flow cytometry. Iron stores were increased, but ring sideroblasts were not identified. 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 Other reported cytogenetic abnormalities included add (9) (p 13), -12, add (12) (p 11.2), -13, add (15) (p11.2), -22, + 1-4mar [cp14]/46, xy[1]. A FISH panel for MDS was requested, but that study apparently was not done. I had also requested heme next generation sequencing, but as yet we have received no results, and the status of that study is unknown. His initial management was complicated fact that he was not insured, and there was no opportunity for referral to a transplant center. By the time the bone marrow results have apparently become available, he did have an insurance policy in place, which mandated that use [facility] as a tertiary referral center. As such, I was able to speak with a physician and there bone marrow transplant division, and he was recommended to begin treatment with a hypomethylating as monotherapy as opposed to a venetoclax containing combination regimen. During this time, he remained severely pancytopenic with requirement for PRBC and platelet transfusions. He also was maintained on antibiotic prophylaxis. His medical history includes atrial fibrillation for which he had previously undergone cardioversion and subsequently a cardiac ablation procedure. He also has some allergic rhinitis, but he has had no other ongoing medical illnesses. He is a non-smoker. INTERIM HISTORY: He began cycle 1 of 5-day decitabine on 11/28/2020. He tolerated that treatment without acute toxicities. During that time he underwent placement of a Linda on central catheter. He received platelets immediately before and following the procedure, and he had no bleeding complications. During subsequent follow-up there was a brief spike in his platelet count, but it was short-lived. 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 He also remains severely neutropenic. He has continued antibiotic, antifungal, and antiviral prophylaxis. He is seen for a follow-up visit. He has still been feeling okay. He does have some fatigue, but he is able to do sedentary work. ECOG score is 1. He has good appetite. He has not had fever, chills, or night sweating. He does not complain of sore mouth or throat. He has no shortness of breath, cough, or chest pain. He has not been having nausea. He has a little bit of heartburn. He continues to have mild constipation. He has no complaints. He has a little bit of joint pain, mainly in his wrists. His left arm had gotten sore last week. Venous Doppler showed no evidence of thrombosis and the pain subsequently resolved. He has not had headache. He has some orthostatic lightheadedness. He has no numbness/paresthesia or other focal neurologic symptoms. He has had no bleeding manifestations. Medications: Bactrim DS 1 Tablet (of 800-160 mg) Oral b.i.d., Multi Vitamin Daily Tablet Oral daily Allergies: No Known Allergies. Vital Signs: Performed on Dec 26, 2020 11:43 Height - 75.00 in Weight - 199.4 lbs (LOW) BSA - 2.19 sq.m BMI - 24.92 Temperature - 99 F (HIGH) Pulse - 85 /min Respiration - 18 /min BP - 135/77 mm(hg) O2 Sat - 99 % Pain - 0 Fatigue - 4 Physical Examination: Constitutional - He looks pretty good generally, Eyes - Sclerae nonicteric. Conjunctivae clear, ENMT - No lesions noted in the oral cavity, Hematologic/Lymphatic - No cervical, clavicular, or axillary adenopathy, Respiratory - Lungs are clear with good air movement bilaterally, Cardiovascular - Heart rhythm is regular. There is no murmur, gallop, or rub noted, Abdomen - Soft. Liver and spleen are not enlarged. There is no abdominal mass or ascites noted and there is no inguinal adenopathy, Extremities - No edema. There are no petechiae noted, Integumentary - The cystic lesion in the right lower back has mostly resolved. There are 2 new lesions on the right side of the back, one at the mid-back level and the other in the upper back, both with surrounding erythema, Neurologic - No focal neurologic deficits noted. Lab/Imaging: Test performed on Dec 26, 2020 09:55 LDH (Total) 256 U/L Sodium 137 mmol/L Potassium 3.9 mmol/L Chloride 102 mmol/L CO2 23 mmol/L Anion Gap 15.9 BUN 16 mg/dL Creatinine 1.2 mg/dL Cr Clearance (Est) 105.7200 mL/min eGFR 66.1 mL/min Glucose 128 mg/dL Osmolality - Calculated 287 mOsm/kg Calcium 9.2 mg/dL Protein, Total 7.2 g/dL Albumin 4.3 g/dL Globulin 2.9 g/dL Bilirubin, Total 1.0 mg/dL ALT (SGPT) 17 U/L AST (SGOT) 21 U/L Alkaline Phosphatase 92 IU/L WBC 0.9 10 3/uL RBC 3.20 10 6/uL HGB 9.2 g/dL HCT 27.4 % MCV 85.6 fL MCH 28.8 pg MCHC 33.6 g/dL RDW 13.1 % Platelet Count 8 10 3/cmm MPV 10.1 fL Neutrophils 0.11 10 3/uL Lymphocytes 0.8 10 3/uL Monocytes 0.0 10 3/uL Eosinophils 0.0 10 3/uL Basophils 0.0 10 3/uL Neutrophil % 11.7 % Lymphocyte % 84.0 % Monocyte % 1.1 % Eosinophil % 0.0 % Basophils % 0.0 % NRBC % 0 % Antibody Screen (Gel) NEGATIVE Problem List: 1. Myelodysplastic syndrome (MDS with multilineage dysplasia), very high risk by IPSS-R. 2. He has a history of atrial fibrillation with previous cardioversion and a subsequent ablation procedure. Problems Addressed with this Encounter and Plan: Patient with myelodysplastic syndrome (MDS with multilineage dysplasia). He presented with severe pancytopenia and his bone marrow aspiration/biopsy showed hypercellular marrow with marked trilineage dysplasia. By FISH analysis he had complex cytogenetics and he was very high risk by IPSS-R. His initial management was somewhat problematic in that he had no insurance coverage, and it did result in some treatment delay. However, on 11/28/2020 he began treatment with decitabine 20 mg/m??? by IV infusion daily for 5 days. He tolerated the treatment without acute toxicity. During subsequent follow-up there was a transient spike in his platelet count and his hemoglobin initially appeared to have stabilized, but it was just a very temporary response. He has since then continued to receive platelet pheresis twice weekly and he has continued PRBC transfusion as needed. He also has remained neutropenic and he has continued antibacterial, antifungal, and antiviral prophylaxis. He will proceed now with cycle 2 of decitabine 20 mg/m??? by IV infusion daily for 5 days. He will continue transfusion support as above. He will continue the same prophylaxis other than will now go back to taking Bactrim twice every day due to the new cysts on his back. He will be scheduled for a follow-up visit in 4 weeks. He is scheduled to be seen at [facility] in January. I am assuming he will have repeat bone marrow aspiration/biopsy with his evaluation there. Signed By: Coleman Camacho M.D. <<Signature on File>>
[2020-12-27] MEDS: acetaminophen 325 mg Tablet 650 MG PO (08:45)
[2020-12-27] MEDS: diphenhydrAMINE 25 mg Capsule PO (08:45)
[2020-12-27] MEDS: ondansetron 2 mg/ML SDV 2 mL 8 MG IVP (08:45)
[2020-12-27 09:00] VITALS: BP 114/78; PULSE 87; RESP 18; TEMP 36.6; O2SAT 100
[2020-12-27 09:14] VITALS: BP 116/62; PULSE 74; RESP 18; TEMP 36.7; O2SAT 100
[2020-12-27] MEDS: sodium chloride 0.9% (100 ml) 100 ML (09:15)
[2020-12-27 09:25] VITALS: BP 121/55; PULSE 82; RESP 18; TEMP 36.9; O2SAT 100
[2020-12-28] MEDS: sodium chloride 0.9% (100 ml) 100 ML 75 ML (08:45)
[2020-12-28] MEDS: ondansetron 2 mg/ML SDV 2 mL 8 MG IVP (08:45)
[2020-12-29] MEDS: ondansetron 2 mg/ML SDV 2 mL 8 MG IVP (08:45)
[2020-12-29] MEDS: sodium chloride 0.9% (100 ml) 100 ML 75 ML (08:45)
[2020-12-29 08:58] LABS: Basophils % 1.5 %; Hematocrit 24.4 % (42.0-52.0); Lymphocytes # 0.6 10^3/uL (0.8-4.8); Lymphocytes % 82.4 %; Mean Corpuscular HGB Conc 32.8 g/dL (30.0-36.0); Mean Corpuscular Hemoglobin 28.1 pg (28.0-34.0); Mean Corpuscular Volume 85.6 fL (80-94); Mean Platelet Volume 9.8 fL (7.4-10.4); Monocytes % 2.9 %; Neutrophils % 13.2 %; Nucleated Red Blood Cells % 0 %; Red Blood Count 2.85 10^6/uL (4.1-5.3); Red Cell Distribution Width 13.1 % (12.1-15.1)
[2020-12-29 09:52] LABS: Platelet Count 20 10^3/cmm (130-400); White Blood Count 0.7 10^3/uL (4.0-10.0)
[2020-12-29 09:53] LABS: Neutrophils # 0.09 10^3/uL (1.8-7.7); Slide Review Slide Review Perform
[2020-12-30] VITALS (10 sets, daily range): BP systolic 102–123; BP diastolic 52–71; PULSE 71–82; RESP 18; TEMP 36.6–37.2; O2SAT 98–100
[2020-12-30] MEDS: acetaminophen 325 mg Tablet 650 MG PO (08:20)
[2020-12-30] MEDS: diphenhydrAMINE 25 mg Capsule PO (08:20)
[2020-12-30] MEDS: palonosetron 0.25 mg/5 mL SDV IV (08:40)
[2020-12-30] MEDS: sodium chloride 0.9% 250 ML 999 ML IV (08:45)
[2020-12-30] MEDS: FUROsemide 10 mg/mL SDV 2mL 20 MG IV (10:55)
[2020-12-30] MEDS: sodium chloride 0.9% (100 ml) 100 ML 75 ML (12:43)
[2021-01-02 09:34] LABS: Hematocrit 29.9 % (42.0-52.0); Lymphocytes # 0.9 10^3/uL (0.8-4.8); Lymphocytes % 85.1 %; Mean Corpuscular HGB Conc 33.4 g/dL (30.0-36.0); Mean Corpuscular Hemoglobin 28.2 pg (28.0-34.0); Mean Corpuscular Volume 84.2 fl (80-94); Mean Platelet Volume 10.3 fL (7.4-10.4); Neutrophils % 6.9 %; Nucleated Red Blood Cells % 0 %; Red Blood Count 3.55 10^6/uL (4.1-5.3)
[2021-01-02 10:44] LABS: Neutrophils # 0.07 10^3/uL (1.8-7.7); Platelet Count 17 10^3/cmm (130-400); Slide Review Slide Review Perform
[2021-01-03 14:35] VITALS: PULSE 89; RESP 18; TEMP 36.8
[2021-01-05 14:48] LABS: Basophils % 1.1 %; Hemoglobin 9.3 g/dL (11.7-16.6); Lymphocytes # 0.8 10^3/uL (0.8-4.8); Lymphocytes % 89.4 %; Mean Corpuscular HGB Conc 33.2 g/dL (30.0-36.0); Mean Corpuscular Volume 84.3 fl (80-94); Mean Platelet Volume 9.8 fL (7.4-10.4); Monocytes % 3.2 %; Neutrophils % 5.2 %; Nucleated Red Blood Cells % 0 %; Positive C 1; Positive M 1; Red Blood Count 3.32 10^6/uL (4.1-5.3)
[2021-01-05 15:09] LABS: Platelet Count 18 10^3/cmm (130-400); White Blood Count 0.9 10^3/uL (4.0-10.0)
[2021-01-05 15:10] LABS: Neutrophils # 0.05 10^3/uL (1.8-7.7); Slide Review Slide Review Perform
[2021-01-06 08:25] VITALS: BP 117/64; PULSE 72; RESP 18; TEMP 36.6; O2SAT 100
[2021-01-06 08:40] VITALS: BP 113/71; PULSE 75; RESP 18; TEMP 36.8; O2SAT 100
[2021-01-09 13:42] LABS: Eosinophils % 0.9 %; Hematocrit 25.7 % (42.0-52.0); Hemoglobin 8.6 g/dL (11.7-16.6); Lymphocytes # 0.8 10^3/uL (0.8-4.8); Mean Corpuscular HGB Conc 33.5 g/dL (30.0-36.0); Mean Corpuscular Volume 83.7 fl (80-94); Mean Platelet Volume 12.6 fL (7.4-10.4); Monocytes # 0.1 10^3/uL (0.2-0.9); Monocytes % 5.4 %; Nucleated Red Blood Cells % 0 %; Red Blood Count 3.07 10^6/uL (4.1-5.3); Red Cell Distribution Width 12.6 % (12.1-15.1); White Blood Count 1.1 10^3/uL (4.0-10.0)
[2021-01-09 13:58] LABS: Neutrophils # 0.09 10^3/uL (1.8-7.7); Platelet Count 15 10^3/cmm (130-400)
[2021-01-10 08:26] VITALS: BP 122/80; PULSE 74; RESP 18; TEMP 37.1; O2SAT 100
[2021-01-12 14:40] LABS: Hematocrit 24.1 % (42.0-52.0); Hemoglobin 8.1 g/dL (11.7-16.6); Lymphocytes # 0.8 10^3/uL (0.8-4.8); Lymphocytes % 87.2 %; Mean Corpuscular HGB Conc 33.6 g/dL (30.0-36.0); Mean Corpuscular Hemoglobin 28.3 pg (28.0-34.0); Mean Corpuscular Volume 84.3 fl (80-94); Mean Platelet Volume 10.5 fL (7.4-10.4); Monocytes % 1.2 %; Neutrophils % 10.4 %; Nucleated Red Blood Cells % 0 %; Red Blood Count 2.86 10^6/uL (4.1-5.3); Red Cell Distribution Width 12.5 % (12.1-15.1)
[2021-01-12 18:34] LABS: White Blood Count 0.9 10^3/uL (4.0-10.0)
[2021-01-12 18:35] LABS: Neutrophils # 0.09 10^3/uL (1.8-7.7); Platelet Count 14 10^3/cmm (130-400)
[2021-01-12 18:36] LABS: Slide Review Slide Review Perform
[2021-01-13] MEDS: diphenhydrAMINE 25 mg Capsule PO (08:20)
[2021-01-13 08:30] VITALS: BP 120/80; PULSE 74; RESP 18; TEMP 37.2; O2SAT 98
[2021-01-13] MEDS: acetaminophen 325 mg Tablet 650 MG PO (08:30)
[2021-01-13] MEDS: sodium chloride 0.9% 250 ML 999 ML IV (08:30)
[2021-01-13 10:02] VITALS: BP 110/78; PULSE 78; RESP 18; TEMP 36.8; O2SAT 98
[2021-01-16 09:39] LABS: Hemoglobin 9.2 g/dL (11.7-16.6); Lymphocytes # 0.4 10^3/uL (0.8-4.8); Mean Corpuscular HGB Conc 34.1 g/dL (30.0-36.0); Mean Corpuscular Hemoglobin 28.6 pg (28.0-34.0); Mean Corpuscular Volume 83.9 fl (80-94); Mean Platelet Volume 9.5 fL (7.4-10.4); Monocytes % 3.3 %; Neutrophils % 26.7 %; Nucleated Red Blood Cells % 0 %; Red Blood Count 3.22 10^6/uL (4.1-5.3); Red Cell Distribution Width 12.6 % (12.1-15.1)
[2021-01-16 10:00] LABS: Alanine Aminotransferase 19 U/L (0-41); Albumin Level 4.5 g/dL (3.5-5.2); Alkaline Phosphatase 106 IU/L (40-130); Anion Gap 15.9 (5-19); Aspartate Amino Transferase 21 U/L (0-40); Blood Urea Nitrogen 10 mg/dL (6-20); Calcium 9.7 mg/dL (8.5-10.5); Carbon Dioxide 23 mmol/L (22-29); Chloride 95 mmol/L (98-107); Globulin 3.6 g/dL (1.3-4.6); Glomerular Filtration Rate 73.1 mL/min (90-130); Glucose 125 mg/dL (65-115); Osmolality Calculated 271 mOsm/kg (285-295); Potassium 3.9 mmol/L (3.5-5.1); Sodium 130 mmol/L (136-145); Total Bilirubin 1.2 mg/dL (0.15-1.2); Total Protein 8.1 g/dL (6.6-8.7)
[2021-01-16 10:23] LABS: Slide Review Slide Review Perform
[2021-01-16 10:25] LABS: Neutrophils # 0.16 10^3/uL (1.8-7.7); Platelet Count 16 10^3/cmm (130-400); White Blood Count 0.6 10^3/uL (4.0-10.0)
[2021-01-17 08:25] VITALS: BP 120/80; PULSE 101; RESP 18; TEMP 36.8; O2SAT 98
[2021-01-17 08:40] VITALS: BP 128/83; PULSE 100; RESP 18; TEMP 36.6; O2SAT 97
== END 2021-01-17 23:59 | disposition home or self-care (01) ==
LOC: ONCMED 05:44
PROVIDERS: PCP Nurse Practitioner Family; Visit Provider Internal Medicine Medical Oncology
DX: D46.A Refractory cytopenia with multilineage dysplasia (principal); D61.818 Other pancytopenia; Z79.899 Other long term (current) drug therapy
CPT/HCPCS: 36415; 36430; 36592; 80053; 83615; 85025; 86850; 86900; 86920; 96375; 96409; 96413; 99214; J0894; J1940; J2405; J2469; J7050; P9040; P9053; P9055; P9058

== ENCOUNTER 2021-02-07 12:35 | Emergency (ER) | payer OTHER, SELFPAY ==
[2021-02-07] VITALS (8 sets, daily range): BP systolic 135–151; BP diastolic 79–93; PULSE 98–114; RESP 16–18; TEMP 37; O2SAT 95–99
--- NOTE | 2021-02-07 | XRR_ITS ---
PROCEDURE INFORMATION: Exam: XR Left Humerus Exam date and time: 02/07/2021 12:00 AM Age: 45 years old Clinical indication: Pain; Upper arm; Left TECHNIQUE: Imaging protocol: XR Left humerus. Views: 2 or more views. COMPARISON: CT shoulder LT w con [id number] 02/07/2021 5:31 PM FINDINGS: Bones/joints: Lytic lesion with ill-defined margins, cortical destruction, and periosteal reaction in the mid-diaphysis of the left humerus, suspicious for a metastatic focus. There is of associated minimally displaced pathologic fracture in the mid diaphysis of the left humerus. No dislocation. Lungs: The visualized left lung is clear. Soft tissues: Mild soft tissue swelling around the mid left humerus. No radiopaque foreign body. XR/[place] [id number] IMPRESSION: 1. Findings suspicious for a metastatic focus with an associated minimally displaced pathologic fracture in the mid diaphysis of the left humerus. 2. Incidental/nonacute findings are listed in the report.
--- NOTE | 2021-02-07 16:04 | CTR_ITS ---
PROCEDURE INFORMATION: Exam: CTA Left Upper Extremity With Contrast Exam date and time: 02/07/2021 4:04 PM Age: 45 years old Clinical indication: Pain; Upper arm; Left; Additional info: Arm pain TECHNIQUE: Imaging protocol: Computed tomographic angiography of the Left upper extremity with intravenous contrast material, including non-contrast images if performed. Sagittal and coronal reformatted images were created and reviewed. 3D rendering (Not supervised by radiologist): MIP and/or 3D reconstructed images were created by the technologist. Radiation optimization: All CT scans at this facility use at least one of these dose optimization techniques: automated exposure control; mA and/or kV adjustment per patient size (includes targeted exams where dose is matched to clinical indication); or iterative reconstruction. Contrast material: OMNI 350; Contrast volume: 95 ml; Contrast route: INTRAVENOUS (IV); COMPARISON: CR XR shoulder LT min 2V* [id number] 02/06/2021 3:14 PM RADIATION DOSE METRICS: Total DLP (mGy-cm): 1584.95 FINDINGS: Limitations: Streak artifact from the left arm lying next to the chest which can limit evaluation. Left subclavian artery: There is a left subclavian central line with the tip in the SVC. Unremarkable. No occlusion, thrombosis, stenosis, extravasation, dissection, or aneurysm. Left axillary artery: Unremarkable. No occlusion, thrombosis, stenosis, extravasation, dissection, or aneurysm. Left brachial artery: Unremarkable. No occlusion, thrombosis, stenosis, extravasation, dissection, or aneurysm. Left radial artery: Visualized portions are unremarkable. No occlusion, thrombosis, stenosis, extravasation, dissection, or aneurysm. Left ulnar artery: Visualized portions are unremarkable. No occlusion, thrombosis, stenosis, extravasation, dissection, or aneurysm. Lungs: Dependent atelectasis in the left lung. The visualized right lung is clear. Bones/joints: Large lytic lesion with ill-defined borders and aggressive periosteal reaction in the mid diaphysis of the left humerus suspicious for a metastatic lesion. There is an associated soft tissue mass surrounding the bony lesion measuring up to 2.2 cm in maximum thickness (series 4, image 85). There is a minimally displaced oblique pathologic fracture in the mid left humerus (series 201, image 27). Soft tissues: See under bones/joints . No radiopaque foreign body. Lymph nodes: Small sclerotic lesions in the posterolateral left 2nd, 8th, and 11th ribs (series 4, images 12, 81, and 134). Small sclerotic lesions in the lateral left 4th, 5th, 6th, and 7th ribs (series 4, images 56-90). Findings are concerning for metastatic foci. CT/[place] [id number] IMPRESSION: 1. Large lytic lesion with surrounding soft tissue mass in the mid diaphysis of the left humerus, suspicious for a metastatic lesion. Associated minimally displaced oblique pathologic fracture in the mid diaphysis of the left humerus. 2. Small sclerotic lesions in multiple left ribs concerning for metastatic foci. 3. Unremarkable CT angiogram of the visualized left upper extremity arteries. No occlusion, thrombosis, stenosis, extravasation, dissection, or aneurysm. 4. Incidental/nonacute findings are listed in the report. Radiation Dose CTDIVOL = (mGy): DLP = 1584.95 (mGy-cm)
--- NOTE | 2021-02-07 16:04 | CTR_ITS ---
PROCEDURE INFORMATION: Exam: CT Left Upper Extremity With Contrast, Shoulder Exam date and time: 02/07/2021 4:04 PM Age: 45 years old Clinical indication: Pain; Upper arm; Left TECHNIQUE: Imaging protocol: CT of the Left upper extremity with contrast material. Exam focused on the shoulder Total images: 339 Radiation optimization: All CT scans at this facility use at least one of these dose optimization techniques: automated exposure control; mA and/or kV adjustment per patient size (includes targeted exams where dose is matched to clinical indication); or iterative reconstruction. Contrast material: OMNI 300; Contrast volume: 95 ml; Contrast route: INTRAVENOUS (IV); COMPARISON: [place] [id number] 02/07/2021 5:24 PM RADIATION DOSE METRICS: Total DLP (mGy-cm): 2554.63 FINDINGS: Tubes, catheters and devices: A left subclavian central venous catheter is present and unchanged. Bones/joints: Partially visualized pathological fracture of diaphysis of left humerus. Small sclerotic lesions seen in the left 2nd and 4th ribs may represent bone islands versus metastatic foci. Soft tissues: Normal. Lymph nodes: No pathological adenopathy is detected. Lungs: Compressive atelectasis of the left lung base. Pleural space: Small left pleural effusion. CT/CT shoulder LT w con [id number] IMPRESSION: 1. Partially visualized pathological fracture of diaphysis of left humerus. 2. Small sclerotic lesions seen in the left 2nd and 4th ribs may represent bone islands versus metastatic foci. 3. Small left pleural effusion with compressive atelectasis. Radiation Dose CTDIVOL = (mGy): DLP = 2554.63 (mGy-cm)
--- NOTE | 2021-02-07 16:05 | XRR_ITS ---
PROCEDURE INFORMATION: Exam: XR Chest Exam date and time: 02/07/2021 4:05 PM Age: 45 years old Clinical indication: Cough and dyspnea; Other: Lt arm pain; Patient HX: Left arm pain. History of myelodysplasia he been getting various treatments; Additional info: Dyspnea/cough/upper respiratory infection TECHNIQUE: Imaging protocol: XR of the chest. Views: 1 view. COMPARISON: CR XR chest 1V portable [id number] 12/02/2020 7:37 AM FINDINGS: Tubes, catheters and devices: Left subclavian central line with the tip in the SVC. Lungs: Lungs are clear bilaterally. Pleural spaces: No pleural effusion. No pneumothorax. Heart/Mediastinum: The cardiac silhouette and mediastinal contours are unremarkable. Bones/joints: Unremarkable for age. XR/XR chest 1V portable [id number] IMPRESSION: 1. No acute cardiopulmonary process. 2. Left subclavian central line with the tip in the SVC. 3. Incidental/nonacute findings are listed in the report.
--- NOTE | 2021-02-07 16:06 | W.ED.UPPEXIN ---
Documented by User: Av Bennett DO 02/09/21 06:42 HPI - Extremity Injury (Upper) General: Chief Complaint: Extremity Injury, Upper Stated Complaint: L ARM PROB: SENT BY DR GARCIA Time Seen by Provider: 02/07/21 15:46 History of Present Illness: HPI narrative: 45-year-old male presents emergency room complaining of left arm pain. He has been having trouble with his arm for some time and taken x-ray was unremarkable. He has a history of myelodysplasia he been getting various treatments he has been thrombocytopenic and anemic secondary to those. He had called Dr. Garcia today complaining of severe pain after he tried to pull his shirt on he had a felt a popping crepitus-like sensation and then severe pain he said his arm in a sling on arrival here. The shoulder itself is not so much painful is the shaft of the humerus particular the anterior portion. Neurovascularly in his he is intact distally. He denies any other injuries. He denies fever. MD complaint: injury to: left Onset (ago): hour(s) Other injuries: none Handedness: right Place: home Severity: moderate Relieving factors: immobilization Exacerbating factors: movement of extremity and other (Palpation) Associated symptoms: Reports weakness in extremities Treatments prior to arrival: other (Sling R sling) Review of Systems Const: Denies: fever(s), chills, body aches, change in appetite, fatigue or malaise ENMT: Denies: throat pain, ear or mastoid pain, nasal discharge or nasal congestion Card: Denies: chest pain, edema, dyspnea on exertion or orthopnea Resp: Denies: dyspnea, productive cough or non-productive cough GI: Denies: abdominal pain, nausea, vomiting, hematemesis, coffee ground emesis, diarrhea, constipation, bloating, hematochezia or melena : Denies: flank pain, dysuria, urinary frequency or urinary urgency Skin/Breast: Denies: rash or pruritus Neuro: Reports: weakness in extremities PFSH ED PFSH: Medical History Atrial fibrillation MDS (myelodysplastic syndrome) Surgical History History of appendectomy History of radiofrequency ablation (RFA) procedure for cardiac arrhythmia History of surgery on wrist Physical Exam Const: COMMON NORMALS: no acute distress GENERAL APPEARANCE: cooperative and comfortable ORIENTATION/CONSCIOUSNESS: Yes awake, Yes oriented to person, Yes oriented to place and Yes oriented to time HENMT: COMMON NORMALS: normocephalic, atraumatic and hearing grossly normal bilaterally HEAD & SCALP: normocephalic and atraumatic Neck/C-Spine: COMMON NORMALS: no JVD Resp: COMMON NORMALS: normal respiratory effort, No retractions, No use of accessory muscles and clear to auscultation bilaterally AUSCULTATION: clear to auscultation bilaterally Cardio: COMMON NORMALS: no JVD, regular rate, regular rhythm and No murmurs present (Cardio) RATE: regular rate RHYTHM: regular rhythm GI: COMMON NORMALS: Soft to palpation and No hepatosplenomegaly present AUSCULTATION: Yes normoactive bowel sounds PALPATION: Yes Soft to palpation, No Tenderness to palpation present (GI), No Guarding due to palpation present (GI) and Yes No hepatosplenomegaly present Extremity: COMMON NORMALS: normal to inspection, capillary refill normal, no clubbing, cyanosis or edema, no calf tenderness and no pedal edema Neuro: SENSORIUM/ORIENTATION: Yes oriented to person, Yes oriented to place and Yes oriented to time Skin: COMMON NORMALS: no rashes or lesions noted GENERAL SKIN EXAM: no rashes or lesions noted Course Vital Signs: Vital signs: Vital Signs Temperature 98.6 F 02/07/21 12:57 Pulse Rate 102 H 02/07/21 21:10 Respiratory Rate 18 02/07/21 21:10 Blood Pressure 149/89 02/07/21 17:00 Pulse Oximetry 95 02/07/21 21:10 MDM - Extremity Injury (Upper) MDM Narrative: Medical decision making narrative: Patient has pathologic fracture. This is quite concerning given his original diagnosis of mild dysplasia additionally he has incidental noting of metastatic lesions on the ribs in the area of the CT of the upper arm that was done. Discussed with Dr. Enciso. He will follow up with the patient. Patient has platelets ordered that he gets routinely they will tonight at midnight and just 6 hours. Kalpana go ahead and transfuse as down here for his thrombocytopenia. Discussed Dr. Rivers he will discharge the patient after the infusion of the platelets. For his arm will sling and given appropriate pain medications make arrangements for follow-up with orthopedics however unfortunately due to the nature of the fracture will be difficult to treat. Discussed with the patient and with Dr. Rivers see his notes for final diagnosis and disposition's. Lab Data: Labs: Lab Results 02/07/21 02/07/21 18:18 18:18 WBC 2.0 10^3/uL L 10^ 3/uL (4.0-10.0) RBC 2.70 10^6/uL L 10 ^6/uL (4.1-5.3) Hgb 7.8 g/dL L g/dL (11.7-16.6) Hct 22.8 % L % (42.0-52.0) MCV 84.4 fl fl (80-94) MCH 28.9 pg pg (28.0-34.0) MCHC 34.2 g/dL g/dL (30.0-36.0) RDW 13.1 % % (12.1-15.1) Plt Count 18 10^3/cmm L* 10 ^3/cmm (130-400) MPV 13.3 fL H fL (7.4-10.4) Neut % (Auto) 58.7 % % Lymph % (Auto) 26.9 % % [place] % (Auto) 11.9 % % Eos % (Auto) 0.0 % % Baso % (Auto) 0.0 % % Neut # (Auto) 1.18 10^3/uL L 10 ^3/uL (1.8-7.7) Lymph # (Auto) 0.5 10^3/uL L 10^ 3/uL (0.8-4.8) [place] # (Auto) 0.2 10^3/uL 10^3/ uL (0.2-0.9) Eos # (Auto) 0.0 10^3/uL 10^3/ uL (0.0-0.8) Baso # (Auto) 0.0 10^3/uL 10^3/ uL (0.0-0.1) Nucleated RBC % (a uto) 0 % % Nucleated RBCs # 0.0 /100WBC /100W BC Sodium 132 mmol/L L mmol /L (136-145) Potassium 4.2 mmol/L mmol/L (3.5-5.1) Chloride 96 mmol/L L mmol/ L (98-107) Carbon Dioxide 26 mmol/L mmol/L (22-29) Anion Gap 14.2 (5-19) BUN 12 mg/dL mg/dL (6-20) Creatinine 0.8 mg/dL mg/dL (0.7-1.2) GFR Calculation 105.5 mL/min mL/m in (90-130) Glucose 107 mg/dL mg/dL (65-115) Calculated Osmolal ity 274 mOsm/kg L mOs m/kg (285-295) Calcium 9.7 mg/dL mg/dL (8.5-10.5) Total Bilirubin 0.6 mg/dL mg/dL (0.15-1.2) AST 20 U/L U/L (0-40) ALT 18 U/L U/L (0-41) Alkaline Phosphata se 88 IU/L IU/L (40-130) Total Protein 7.1 g/dL g/dL (6.6-8.7) Albumin 3.8 g/dL g/dL (3.5-5.2) Globulin 3.3 g/dL g/dL (1.3-4.6) Discharge Plan Discharge Patient Disposition: Home Clinical Impression: Fracture, humerus, Thrombocytopenia, MDS (myelodysplastic syndrome) Condition: Stable Prescriptions: New hydrocodone-acetaminophen 5-325 mg tablet 1 tab PO Q6H PRN (Reason: pain) Qty: 14 RF: 0 ondansetron 4 mg tablet,disintegrating 4 mg PO Q6H PRN (Reason: nausea and vomiting) Qty: 14 RF: 0 No Action sulfamethoxazole-trimethoprim 800-160 mg tablet 1 tab PO BID RF: 0 acetaminophen 500 mg Tablet 1,000 mg PO PRN RF: 0 decitabine See Rx Instructions .ROUTE .COMPLEX RF: 0 multivitamin Tablet 1 tab PO DAILY RF: 0 levofloxacin 500 mg Tablet 500 mg PO DAILY RF: 0 fluconazole 100 mg Tablet 100 mg PO BID RF: 0 acyclovir 400 mg Tablet 400 mg PO BID RF: 0 Discharge Orders: Discharge ED (Routine); Ordered 02/07/21 Ordered By: Kal Rivers Referrals: Esequiel Hastings DO [Physician] - 1-3 days Akilah Mcclain, TI[employer] BUILDER OPERATOR [Primary Care Provider] - Discharge Diet: Advance as tolerated Discharge Activity: Resume usual activity Patient Instructions: Arm Fracture in Adults (ED), Opioid Safety Coding Level of Care Code ED Continuous Drier Helper for Chg Fwd Exam Comprehensive Documented by User: Kal Rivers MD 02/07/21 19:47 HPI - Extremity Injury (Upper) General: Chief Complaint: Extremity Injury, Upper Stated Complaint: L ARM PROB: SENT BY DR GARCIA Time Seen by Provider: 02/07/21 15:46 PFS ED PFSH: Medical History Atrial fibrillation MDS (myelodysplastic syndrome) Surgical History History of appendectomy History of radiofrequency ablation (RFA) procedure for cardiac arrhythmia History of surgery on wrist Course Vital Signs: Vital signs: Vital Signs Temperature 98.6 F 02/07/21 12:57 Pulse Rate 102 H 02/07/21 21:10 Respiratory Rate 18 02/07/21 21:10 Blood Pressure 149/89 02/07/21 17:00 Pulse Oximetry 95 02/07/21 21:10 MDM - Extremity Injury (Upper) MDM Narrative: Medical decision making narrative: Patient presents here with pathologic fracture to his left humerus. Patient placed in a sling. Patient was also transfused platelets was here as well. While patient follow-up with orthopedics along with his oncologist. Lab Data: Labs: Lab Results 02/07/21 02/07/21 18:18 18:18 WBC 2.0 10^3/uL L 10^ 3/uL (4.0-10.0) RBC 2.70 10^6/uL L 10 ^6/uL (4.1-5.3) Hgb 7.8 g/dL L g/dL (11.7-16.6) Hct 22.8 % L % (42.0-52.0) MCV 84.4 fl fl (80-94) MCH 28.9 pg pg (28.0-34.0) MCHC 34.2 g/dL g/dL (30.0-36.0) RDW 13.1 % % (12.1-15.1) Plt Count 18 10^3/cmm L* 10 ^3/cmm (130-400) MPV 13.3 fL H fL (7.4-10.4) Neut % (Auto) 58.7 % % Lymph % (Auto) 26.9 % % [place] % (Auto) 11.9 % % Eos % (Auto) 0.0 % % Baso % (Auto) 0.0 % % Neut # (Auto) 1.18 10^3/uL L 10 ^3/uL (1.8-7.7) Lymph # (Auto) 0.5 10^3/uL L 10^ 3/uL (0.8-4.8) [place] # (Auto) 0.2 10^3/uL 10^3/ uL (0.2-0.9) Eos # (Auto) 0.0 10^3/uL 10^3/ uL (0.0-0.8) Baso # (Auto) 0.0 10^3/uL 10^3/ uL (0.0-0.1) Nucleated RBC % (a uto) 0 % % Nucleated RBCs # 0.0 /100WBC /100W BC Sodium 132 mmol/L L mmol /L (136-145) Potassium 4.2 mmol/L mmol/L (3.5-5.1) Chloride 96 mmol/L L mmol/ L (98-107) Carbon Dioxide 26 mmol/L mmol/L (22-29) Anion Gap 14.2 (5-19) BUN 12 mg/dL mg/dL (6-20) Creatinine 0.8 mg/dL mg/dL (0.7-1.2) GFR Calculation 105.5 mL/min mL/m in (90-130) Glucose 107 mg/dL mg/dL (65-115) Calculated Osmolal ity 274 mOsm/kg L mOs m/kg (285-295) Calcium 9.7 mg/dL mg/dL (8.5-10.5) Total Bilirubin 0.6 mg/dL mg/dL (0.15-1.2) AST 20 U/L U/L (0-40) ALT 18 U/L U/L (0-41) Alkaline Phosphata se 88 IU/L IU/L (40-130) Total Protein 7.1 g/dL g/dL (6.6-8.7) Albumin 3.8 g/dL g/dL (3.5-5.2) Globulin 3.3 g/dL g/dL (1.3-4.6) Imaging Data^: Other CT: Radiologist's impression: [address] [address] [address] Scan Report Signed with Addenda Patient: Aden Swain Unit #: [id number] : 1975 Age/Sex: 45 / M ADM Date: 02/07/21 Loc: ER Room/Bed: Attending Dr: Ordering Provider/Ordering MD: Av Bennett DO Date of Service: 02/07/21 Procedure(s): [place] [address] Accession Number(s): [id number] Report Number: [id number]/[place] [address] Please note the addendum to the original report: No acute fracture or dislocation at the bones of the left shoulder. Urgent results were discussed with AV Rivas on 02/07/2021 at 6:25 PM CDT. Radiation Dose CTDIVOL = (mGy): DLP = 1584.95 (mGy-cm) Addendum Dictated By: Chrissy Arora MD Addendum Signed By: Chrissy Arora MD Signed Date/Time: 02/07/21 182 Addendum Cosigned By: PROCEDURE INFORMATION: Exam: CTA Left Upper Extremity With Contrast Exam date and time: 02/07/2021 4:04 PM Age: 45 years old Clinical indication: Pain; Upper arm; Left; Additional info: Arm pain TECHNIQUE: Imaging protocol: Computed tomographic angiography of the Left upper extremity with intravenous contrast material, including non-contrast images if performed. Sagittal and coronal reformatted images were created and reviewed. 3D rendering (Not supervised by radiologist): MIP and/or 3D reconstructed images were created by the technologist. Radiation optimization: All CT scans at this facility use at least one of these dose optimization techniques: automated exposure control; mA and/or kV adjustment per patient size (includes targeted exams where dose is matched to clinical indication); or iterative reconstruction. Contrast material: OMNI 350; Contrast volume: 95 ml; Contrast route: INTRAVENOUS (IV); COMPARISON: CR XR shoulder LT min 2V* [id number] 02/06/2021 3:14 PM RADIATION DOSE METRICS: Total DLP (mGy-cm): 1584.95 FINDINGS: Limitations: Streak artifact from the left arm lying next to the chest which can limit evaluation. Left subclavian artery: There is a left subclavian central line with the tip in the SVC. Unremarkable. No occlusion, thrombosis, stenosis, extravasation, dissection, or aneurysm. Left axillary artery: Unremarkable. No occlusion, thrombosis, stenosis, extravasation, dissection, or aneurysm. Left brachial artery: Unremarkable. No occlusion, thrombosis, stenosis, extravasation, dissection, or aneurysm. Left radial artery: Visualized portions are unremarkable. No occlusion, thrombosis, stenosis, extravasation, dissection, or aneurysm. Left ulnar artery: Visualized portions are unremarkable. No occlusion, thrombosis, stenosis, extravasation, dissection, or aneurysm. Lungs: Dependent atelectasis in the left lung. The visualized right lung is clear. Bones/joints: Large lytic lesion with ill-defined borders and aggressive periosteal reaction in the mid diaphysis of the left humerus suspicious for a metastatic lesion. There is an associated soft tissue mass surrounding the bony lesion measuring up to 2.2 cm in maximum thickness (series 4, image 85). There is a minimally displaced oblique pathologic fracture in the mid left humerus (series 201, image 27). Soft tissues: See under bones/joints . No radiopaque foreign body. Lymph nodes: Small sclerotic lesions in the posterolateral left 2nd, 8th, and 11th ribs (series 4, images 12, 81, and 134). Small sclerotic lesions in the lateral left 4th, 5th, 6th, and 7th ribs (series 4, images 56-90). Findings are concerning for metastatic foci. [place] [id number] IMPRESSION: 1. Large lytic lesion with surrounding soft tissue mass in the mid diaphysis of the left humerus, suspicious for a metastatic lesion. Associated minimally displaced oblique pathologic fracture in the mid diaphysis of the left humerus. 2. Small sclerotic lesions in multiple left ribs concerning for metastatic foci. 3. Unremarkable CT angiogram of the visualized left upper extremity arteries. No occlusion, thrombosis, stenosis, extravasation, dissection, or aneurysm. 4. Incidental/nonacute findings are listed in the report. Radiation Dose CTDIVOL = (mGy): DLP = 1584.95 (mGy-cm) Dictated By: Chrissy Arora MD Signed By: Chrissy Arora MD Signed Date/Time: 02/07/211824 DD/ 22 Discharge Plan Discharge Patient Disposition: Home Clinical Impression: Fracture, humerus, Thrombocytopenia, MDS (myelodysplastic syndrome) Condition: Stable Prescriptions: New hydrocodone-acetaminophen 5-325 mg tablet 1 tab PO Q6H PRN (Reason: pain) Qty: 14 RF: 0 ondansetron 4 mg tablet,disintegrating 4 mg PO Q6H PRN (Reason: nausea and vomiting) Qty: 14 RF: 0 No Action sulfamethoxazole-trimethoprim 800-160 mg tablet 1 tab PO BID RF: 0 acetaminophen 500 mg Tablet 1,000 mg PO PRN RF: 0 decitabine See Rx Instructions .ROUTE .COMPLEX RF: 0 multivitamin Tablet 1 tab PO DAILY RF: 0 levofloxacin 500 mg Tablet 500 mg PO DAILY RF: 0 fluconazole 100 mg Tablet 100 mg PO BID RF: 0 acyclovir 400 mg Tablet 400 mg PO BID RF: 0 Discharge Orders: Discharge ED (Routine); Ordered 02/07/21 Ordered By: Kal Rivers Referrals: Esequiel Hastings DO [Physician] - 1-3 days Akilah Mcclain, TIRE BUILDER OPERATOR [Primary Care Provider] - Discharge Diet: Advance as tolerated Discharge Activity: Resume usual activity Patient Instructions: Arm Fracture in Adults (ED), Opioid Safety Coding Level of Care Code ED Continuous Drier Helper for Chg Fwd Exam Comprehensive
[2021-02-07] MEDS: morphine 4 mg/mL SDV 1 mL 8 MG IVP (16:33)
[2021-02-07] MEDS: ondansetron 2 mg/ML SDV 2 mL 4 MG IVP (16:34)
[2021-02-07] MEDS: iohexol 350 mg/mL 100 mL Btl IV (17:32)
[2021-02-07] MEDS: iohexol 300 mg/mL 100 mL Btl IV (17:43)
[2021-02-07 18:35] LABS: Hematocrit 22.8 % (42.0-52.0); Hemoglobin 7.8 g/dL (11.7-16.6); Lymphocytes # 0.5 10^3/uL (0.8-4.8); Lymphocytes % 26.9 %; Mean Corpuscular HGB Conc 34.2 g/dL (30.0-36.0); Mean Corpuscular Hemoglobin 28.9 pg (28.0-34.0); Mean Corpuscular Volume 84.4 fl (80-94); Mean Platelet Volume 13.3 fL (7.4-10.4); Monocytes # 0.2 10^3/uL (0.2-0.9); Monocytes % 11.9 %; Neutrophils # 1.18 10^3/uL (1.8-7.7); Neutrophils % 58.7 %; Nucleated Red Blood Cells % 0 %; Red Cell Distribution Width 13.1 % (12.1-15.1)
[2021-02-07 19:01] LABS: Alanine Aminotransferase 18 U/L (0-41); Albumin Level 3.8 g/dL (3.5-5.2); Alkaline Phosphatase 88 IU/L (40-130); Anion Gap 14.2 (5-19); Aspartate Amino Transferase 20 U/L (0-40); Blood Urea Nitrogen 12 mg/dL (6-20); Calcium 9.7 mg/dL (8.5-10.5); Carbon Dioxide 26 mmol/L (22-29); Chloride 96 mmol/L (98-107); Globulin 3.3 g/dL (1.3-4.6); Glomerular Filtration Rate 105.5 mL/min (90-130); Glucose 107 mg/dL (65-115); Osmolality Calculated 274 mOsm/kg (285-295); Potassium 4.2 mmol/L (3.5-5.1); Sodium 132 mmol/L (136-145); Total Bilirubin 0.6 mg/dL (0.15-1.2); Total Protein 7.1 g/dL (6.6-8.7)
[2021-02-07 19:03] LABS: Platelet Count 18 10^3/cmm (130-400)
[2021-02-07 19:04] LABS: Slide Review Slide Review Perform
[2021-02-07] MEDS: HYDROmorphone 1 mg/mL INJ 1 mL IVP (19:52)
--- NOTE | 2021-02-07 20:45 | PC.NURSE ---
platelet transfusion and vitals recorded on paper form in chart.
--- NOTE | 2021-02-08 09:53 | DCPLANNER ---
living manager had message to schedule a follow up appointment for patient with ortho. living manager called the ortho clinic, spoke with Eri, gave clinic patients information. living manager was told that patients information would be printed and reviewed. Clinic will call patient with appointment information.
--- NOTE | 2021-02-09 14:42 | DCPLANNER ---
Patient had a follow up appointment scheduled for 02.09.[address] Hastings at [facility] - patient did attend appointment.
== END 2021-02-07 21:10 | disposition home or self-care (01) ==
PROVIDERS: Family Medicine; Absent Provider Internal Medicine Medical Oncology; Emergency Provider Emergency Medicine; PCP Nurse Practitioner Family
DX: M84.422A Pathological fracture, left humerus, initial encounter for fracture (principal); D69.6 Thrombocytopenia, unspecified; D46.9 Myelodysplastic syndrome, unspecified
CPT/HCPCS: 29125; 71045; 73060; 73201; 73206; 80053; 85025; 87040; 96374; 96375; 99284; J1170; J2270; J2405; Q9967

== ENCOUNTER 2021-02-09 11:31 | Outpatient (CLI) | payer OTHER, SELFPAY | END 2021-02-09 11:32 | disposition home or self-care (01) | LOC: SPT 11:31 | PROVIDERS: PCP Nurse Practitioner Family; Visit Provider Orthopaedic Surgery | DX: Z46.89 Encounter for fitting and adjustment of other specified devices (principal); S42.325D Nondisplaced transverse fracture of shaft of humerus, left arm, subsequent encounter for fracture with routine healing; X58.XXXD Exposure to other specified factors, subsequent encounter | CPT/HCPCS: 97760; L3980 ==

== ENCOUNTER 2021-02-10 07:37 | Outpatient (RCR) | payer OTHER, SELFPAY ==
[2021-01-19 11:12] LABS: Hemoglobin 6.8 g/dL (11.7-16.6); Lymphocytes # 0.6 10^3/uL (0.8-4.8); Lymphocytes % 89.6 %; Mean Corpuscular HGB Conc 33.7 g/dL (30.0-36.0); Mean Corpuscular Hemoglobin 28.5 pg (28.0-34.0); Mean Corpuscular Volume 84.5 fl (80-94); Mean Platelet Volume 9.7 fL (7.4-10.4); Monocytes % 1.5 %; Neutrophils % 8.9 %; Nucleated Red Blood Cells % 0 %; Red Blood Count 2.39 10^6/uL (4.1-5.3); Red Cell Distribution Width 12.7 % (12.1-15.1)
[2021-01-19 12:28] LABS: Hematocrit 20.2 % (42.0-52.0); Neutrophils # 0.06 10^3/uL (1.8-7.7); Platelet Count 18 10^3/cmm (130-400); White Blood Count 0.7 10^3/uL (4.0-10.0)
[2021-01-19 12:29] LABS: Slide Review Slide Review Perform
[2021-01-20] VITALS (12 sets, daily range): BP systolic 104–139; BP diastolic 60–74; PULSE 73–88; RESP 16; TEMP 36.8–37.2; O2SAT 97–98
[2021-01-20] MEDS: diphenhydrAMINE 25 mg Capsule PO (08:17)
[2021-01-20] MEDS: acetaminophen 325 mg Tablet 650 MG PO (08:17)
[2021-01-20] MEDS: sodium chloride 0.9% 250 ML 999 ML IV (08:41)
[2021-01-20] MEDS: FUROsemide 10 mg/mL SDV 2mL 20 MG IV (10:55)
[2021-01-24 09:49] LABS: Hemoglobin 9.1 g/dL (11.7-16.6); Lymphocytes # 0.7 10^3/uL (0.8-4.8); Lymphocytes % 92.4 %; Mean Corpuscular HGB Conc 33.7 g/dL (30.0-36.0); Mean Platelet Volume 11.3 fL (7.4-10.4); Monocytes % 3.8 %; Neutrophils % 3.8 %; Nucleated Red Blood Cells % 0 %; Red Blood Count 3.14 10^6/uL (4.1-5.3); Red Cell Distribution Width 12.8 % (12.1-15.1)
[2021-01-24 10:17] LABS: Alanine Aminotransferase 21 U/L (0-41); Albumin Level 4.1 g/dL (3.5-5.2); Alkaline Phosphatase 89 IU/L (40-130); Anion Gap 13.8 (5-19); Aspartate Amino Transferase 22 U/L (0-40); Blood Urea Nitrogen 14 mg/dL (6-20); Calcium 9.5 mg/dL (8.5-10.5); Carbon Dioxide 25 mmol/L (22-29); Chloride 100 mmol/L (98-107); Globulin 3.2 g/dL (1.3-4.6); Glomerular Filtration Rate 81.6 mL/min (90-130); Glucose 94 mg/dL (65-115); Lactate Dehydrogenase 300 U/L (135-225); Osmolality Calculated 280 mOsm/kg (285-295); Potassium 3.8 mmol/L (3.5-5.1); Sodium 135 mmol/L (136-145); Total Bilirubin 0.6 mg/dL (0.15-1.2); Total Protein 7.3 g/dL (6.6-8.7)
[2021-01-24 10:35] LABS: Neutrophils # 0.03 10^3/uL (1.8-7.7); Platelet Count 14 10^3/cmm (130-400); White Blood Count 0.8 10^3/uL (4.0-10.0)
[2021-01-24 10:36] LABS: Slide Review Slide Review Perform
[2021-01-24] MEDS: diphenhydrAMINE 25 mg Capsule PO (11:05)
[2021-01-24] MEDS: acetaminophen 325 mg Tablet 650 MG PO (11:05)
[2021-01-24 11:12] VITALS: BP 123/77; PULSE 77; RESP 16; TEMP 37; O2SAT 97
--- NOTE | 2021-01-24 14:16 | ONC FU_ITS ---
Dr. Camacho Patient Follow-Up Note Patient: Aden Swain Unit #: [id number]: 1975 Dicatated By: Coleman Camacho M.D.Date of Visit:Jan 24, 2021 Onc Med Follow-up/Prog Note Chief Complaint: Myelodysplastic syndrome. History of Present Illness: This is a 45-year-old man with myelodysplastic syndrome (MDS with multilineage dysplasia), very high risk by IPSS-R. He had presented to [facility] with complaints of shortness of breath and fatigue. His CBC showed severe pancytopenia. The hemoglobin was low at 5.1 g with hematocrit 16.0%. The red cell indices were in the low normal range. The white blood cell count was 2500 with a differential showing 71% neutrophils, 22% lymphocytes, and 5% monocytes. Platelet count was also very low at 11,000. Comprehensive metabolic profile showed normal renal function with BUN 14 and creatinine 0.99 mg/dL. Bilirubin was slightly elevated 1.3 mg/dL. The liver enzymes were normal. TSH was normal at 0.566 ???IU/mL. I had seen him initially on 10/25/2020. He began on PRBC transfusion support. I initially did not transfuse platelets, as he clinically did not demonstrate a significant bleeding tendency. He continued antibiotic coverage for what appeared to be an infected cyst on his lower back. He underwent bone marrow aspiration/biopsy on 10/26/2020. The marrow was hypercellular estimated 90 to 100% with marked trilineage dyspoiesis. Blasts did not appear to be overtly increased, estimated at 2.5 to 3.5% by flow cytometry. Iron stores were increased, but ring sideroblasts were not identified. 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 Other reported cytogenetic abnormalities included add (9) (p 13), -12, add (12) (p 11.2), -13, add (15) (p11.2), -22, + 1-4mar [cp14]/46, xy[1]. A FISH panel for MDS was requested, but that study apparently was not done. I had also requested heme next generation sequencing, but that studey was also apparently never completed. However, based on the severity of his pancytopenia and very poor cytogenetics, his IPPS-R calculated to 8.0, very high risk. His initial management was complicated fact that he was not insured, and there was no opportunity for referral to a transplant center. By the time the bone marrow results had become available, he did have an insurance policy in place, which mandated the use [facility] as a tertiary referral center. As such, I was able to speak with a physician in their bone marrow transplant division, and he was recommended to begin treatment with a hypomethylating as monotherapy as opposed to a venetoclax containing combination regimen. During this time, he remained severely pancytopenic with requirement for PRBC and platelet transfusions. He also was maintained on antibiotic prophylaxis. His medical history includes atrial fibrillation for which he had previously undergone cardioversion and subsequently a cardiac ablation procedure. He also has some allergic rhinitis, but he has had no other ongoing medical illnesses. He is a non-smoker. INTERIM HISTORY: He began cycle 1 of 5-day decitabine on 11/28/2020. He tolerated that treatment without acute toxicities. During that time he underwent placement of a Linda central venous catheter. He received platelets immediately before and following the procedure, and he had no bleeding complications. During subsequent follow-up there was a brief spike in his platelet count, but it was short-lived. He then continued to receive platelet pheresis twice weekly and he continued to have transfusion dependent anemia. He also remained severely neutropenic, and he continued antibiotic, antifungal, and antiviral prophylaxis. He then proceeded with cycle 2 of decitabine monotherapy on 12/26/2020. He again tolerated the treatment without significant toxicity. During follow-up he remained severely pancytopenic. He had developed recurrent pain in his left arm. With the initial episode, he had venous Doppler studies which were negative for deep vein thrombosis. His symptoms then improved with symptomatic management. He is seen for a follow-up visit. He has continued transfusion support with platelet pheresis twice weekly, and he also has continued PRBC transfusion as needed. Last week he had recurrence of the left arm pain, mainly in the deltoid region. At that point the symptoms did appear to be very suggestive of quinolone tendinitis, I did have him stop his prophylactic Levaquin. The pain has since then improved, though not completely resolved. He says his energy has been a little lower. He is still doing sedentary work at home. ECOG score is 1. He has good appetite. He had some slight fever with the arm pain last week, that has resolved. He has had sweating intermittently, both during the daytime and at night. He thinks this may be related to the oxycodone. He has developed a sore on the right side of his tongue. He has not had sore throat or difficulty swallowing. He has no shortness of breath, cough, or chest pain. He has not been having nausea. He occasionally has a little bit of heartburn. He also has some mild constipation. He has no complaints. He has no significant joint or bone pain. He does not complain of headache or dizziness. Last week he was having some numbness in his left arm and hand, but that has resolved. Medications: Bactrim DS 1 Tablet (of 800-160 mg) Oral b.i.d., Multi Vitamin Daily Tablet Oral daily Allergies: No Known Allergies. Vital Signs: Performed on Jan 24, 2021 12:01 Height - 75.00 in Weight - 197 lbs (LOW) BSA - 2.18 sq.m BMI - 24.62 Temperature - 98.7 F Pulse - 91 /min Respiration - 18 /min BP - 144/87 mm(hg) (HIGH) O2 Sat - 96 % Pain - 5 Fatigue - 6 Physical Examination: Constitutional - He appears somewhat weak generally, Eyes - Sclerae nonicteric. Conjunctivae clear, ENMT - There is an ulceration in the right lateral tongue border. There are no other lesions noted in the oral cavity, Hematologic/Lymphatic - No cervical, clavicular, or axillary adenopathy, Respiratory - Lungs sound clear, Cardiovascular - Heart rhythm is regular. There is no murmur, gallop, or rub noted, Abdomen - Soft. Liver and spleen are not enlarged. There is no abdominal mass or ascites noted and there is no inguinal adenopathy, Extremities - No edema. There are a few scattered ecchymoses. There are no petechiae noted, Neurologic - No focal neurologic deficits noted. Lab/Imaging: Test performed on Jan 24, 2021 09:10 LDH (Total) 300 U/L Sodium 135 mmol/L Potassium 3.8 mmol/L Chloride 100 mmol/L CO2 25 mmol/L Anion Gap 13.8 BUN 14 mg/dL Creatinine 1.0 mg/dL Cr Clearance (Est) 126.8600 mL/min eGFR 81.6 mL/min Glucose 94 mg/dL Osmolality - Calculated 280 mOsm/kg Calcium 9.5 mg/dL Protein, Total 7.3 g/dL Albumin 4.1 g/dL Globulin 3.2 g/dL Bilirubin, Total 0.6 mg/dL ALT (SGPT) 21 U/L AST (SGOT) 22 U/L Alkaline Phosphatase 89 IU/L WBC 0.8 10 3/uL RBC 3.14 10 6/uL HGB 9.1 g/dL HCT 27.0 % MCV 86.0 fl MCH 29.0 pg MCHC 33.7 g/dL RDW 12.8 % Platelet Count 14 10 3/cmm MPV 11.3 fL Neutrophils 0.03 10 3/uL Lymphocytes 0.7 10 3/uL Monocytes 0.0 10 3/uL Eosinophils 0.0 10 3/uL Basophils 0.0 10 3/uL Neutrophil % 3.8 % Lymphocyte % 92.4 % Monocyte % 3.8 % Eosinophil % 0.0 % Basophils % 0.0 % NRBC % 0 % CBC Slide Review Slide Review Perform SLIDE REVIEW AGREES WITH AUTOMATED RESULTS ST Problem List: 1. Myelodysplastic syndrome (MDS with multilineage dysplasia), very high risk by IPSS-R. 2. He has a history of atrial fibrillation with previous cardioversion and a subsequent ablation procedure. Problems Addressed with this Encounter and Plan: 1. Patient with myelodysplastic syndrome (MDS with multilineage dysplasia). He presented with severe pancytopenia and his bone marrow aspiration/biopsy showed hypercellular marrow with marked trilineage dysplasia. By FISH analysis he had complex cytogenetics, and he was very high risk by IPSS-R. His initial management was somewhat problematic in that he had no insurance coverage, and it did result in some treatment delay. However, on 11/28/2020 he began treatment with decitabine 20 mg/m??? by IV infusion daily for 5 days. He tolerated the treatment without acute toxicity. During subsequent follow-up there was a transient spike in his platelet count and his hemoglobin initially appeared to have stabilized, but it was just a very temporary response. He proceeded with cycle 2 of decitabine monotherapy on 12/26/2020. During this time, he has remained pancytopenic. He has continued to receive platelet pheresis twice weekly and he has continued PRBC transfusion as needed. He has remained neutropenic, and he has continued antibacterial, antifungal, and antiviral prophylaxis. He is scheduled to be seen at [facility] on 01/31/2021. His further treatment will be deferred pending outcome of that evaluation. In the meantime, with development of a new ulceration on the lateral border of the tongue, he will increase acyclovir to 400 mg 4 times daily. He continues salt/soda rinses, and he also continues his antifungal prophylaxis. 2. He has complained of left arm pain, mainly in the deltoid region. His previous venous Doppler studies showed no evidence of thrombosis. His symptoms were suggestive of quinolone tendinitis, and his symptoms now are improving after stopping Levaquin. Signed By: Coleman Camacho M.D. <<Signature on File>>
[2021-01-26 14:31] LABS: Hematocrit 25.4 % (42.0-52.0); Hemoglobin 8.5 g/dL (11.7-16.6); Lymphocytes # 0.8 10^3/uL (0.8-4.8); Lymphocytes % 91.7 %; Mean Corpuscular HGB Conc 33.5 g/dL (30.0-36.0); Mean Corpuscular Hemoglobin 28.4 pg (28.0-34.0); Mean Corpuscular Volume 84.9 fl (80-94); Mean Platelet Volume 10.8 fL (7.4-10.4); Monocytes % 2.4 %; Neutrophils % 5.9 %; Nucleated Red Blood Cells % 0 %; Red Blood Count 2.99 10^6/uL (4.1-5.3); Red Cell Distribution Width 12.8 % (12.1-15.1)
[2021-01-26 15:01] LABS: Platelet Count 22 10^3/cmm (130-400); White Blood Count 0.8 10^3/uL (4.0-10.0)
[2021-01-26 15:02] LABS: Neutrophils # 0.05 10^3/uL (1.8-7.7); Slide Review Slide Review Perform
[2021-01-27] VITALS (9 sets, daily range): BP systolic 114–126; BP diastolic 63–78; PULSE 72–78; RESP 18; TEMP 36.6–37.2; O2SAT 98–100
[2021-01-27] MEDS: diphenhydrAMINE 25 mg Capsule PO (08:45)
[2021-01-27] MEDS: sodium chloride 0.9% 250 ML 999 ML IV (08:45)
[2021-01-27] MEDS: acetaminophen 325 mg Tablet 650 MG PO (09:00)
[2021-02-03 08:42] LABS: Hematocrit 26.5 % (42.0-52.0); Hemoglobin 8.8 g/dL (11.7-16.6); Lymphocytes % 63.8 %; Mean Corpuscular HGB Conc 33.2 g/dL (30.0-36.0); Mean Corpuscular Hemoglobin 28.3 pg (28.0-34.0); Mean Corpuscular Volume 85.2 fl (80-94); Monocytes # 0.2 10^3/uL (0.2-0.9); Monocytes % 11.3 %; Neutrophils % 23.6 %; Nucleated Red Blood Cells % 0 %; Red Blood Count 3.11 10^6/uL (4.1-5.3); White Blood Count 1.6 10^3/uL (4.0-10.0)
[2021-02-03 09:25] VITALS: BP 130/79; PULSE 92; RESP 18; TEMP 36.8; O2SAT 99
[2021-02-03 09:26] LABS: Neutrophils # 0.38 10^3/uL (1.8-7.7); Platelet Count 11 10^3/cmm (130-400); Slide Review Slide Review Perform
--- NOTE | 2021-02-06 15:05 | XR_ITS ---
WS: [id number] Left shoulder, 3 views, 02/06/2021 Clinical Data: LEFT SHOULDER PAIN Comparison: None. Findings: No fractures or dislocations are seen. The AC joint is normal. The adjacent left clavicle, left scapu la and ribs are normal. The soft tissues are unremarkable. There is a left internal jugular venous catheter. XR/XR shoulder LT min 2V* [id number] Impression: Negative left shoulder.
[2021-02-06 15:38] LABS: Hematocrit 24.6 % (42.0-52.0); Hemoglobin 8.3 g/dL (11.7-16.6); Mean Corpuscular HGB Conc 33.7 g/dL (30.0-36.0); Mean Platelet Volume 12.3 fL (7.4-10.4); Monocytes # 0.2 10^3/uL (0.2-0.9); Monocytes % 10.5 %; Neutrophils % 38.5 %; Nucleated Red Blood Cells % 0 %; Red Blood Count 2.86 10^6/uL (4.1-5.3)
[2021-02-06 16:16] LABS: Neutrophils # 0.77 10^3/uL (1.8-7.7); Platelet Count 19 10^3/cmm (130-400)
[2021-02-06 16:17] LABS: Slide Review Slide Review Perform
--- NOTE | 2021-02-08 13:08 | XR_ITS ---
WS: [id number] Bone survey, 02/08/2021 Clinical Data: MDS ABNORMAL CT OF LEFT ARM, METASTATIC LESIONS Comparison: CT of the left arm and humerus, 02/07/2021 Findings: Lateral view of the skull: Negative. Lateral cervical spine: Negative. AP chest : Negative. AP and lateral thoracic spine: Negative. AP and lateral lumbar spine: The lateral view shows motion. The AP view is obscured by the patient's overlying wrist. Negative for obvious metastatic lesion. AP pelvis: Negative. AP right hip and thigh: Negative. AP left hip and thigh: Negative. AP right arm and humerus: Negative. AP left arm and humerus: There is a moth-eaten destructive mid humeral lesion which corresponds to th e abnormality seen on the CT scan of the left upper extremity. XR/XR bone survey* [id number] Impression: 1. Destructive left mid humeral lesion which could be a metastatic lesion or an osteolytic osteosarcoma. 2. Remainder of the bone survey shows no further lesions.
[2021-02-09] VITALS (9 sets, daily range): BP systolic 124–150; BP diastolic 68–86; PULSE 94–102; RESP 18–178; TEMP 36.4–37; O2SAT 96–99
[2021-02-09 11:33] LABS: Basophils % 0.2 %; Hematocrit 24.6 % (42.0-52.0); Hemoglobin 8.3 g/dL (11.7-16.6); Lymphocytes # 1.1 10^3/uL (0.8-4.8); Lymphocytes % 25.7 %; Mean Corpuscular HGB Conc 33.7 g/dL (30.0-36.0); Mean Corpuscular Hemoglobin 29.1 pg (28.0-34.0); Mean Corpuscular Volume 86.3 fl (80-94); Mean Platelet Volume 11.4 fL (7.4-10.4); Monocytes # 0.6 10^3/uL (0.2-0.9); Neutrophils # 2.59 10^3/uL (1.8-7.7); Nucleated Red Blood Cells % 0 %; Red Blood Count 2.85 10^6/uL (4.1-5.3); Red Cell Distribution Width 13.2 % (12.1-15.1); White Blood Count 4.4 10^3/uL (4.0-10.0)
[2021-02-09] MEDS: sodium chloride 0.9% 250 ML 999 ML IV (12:00)
[2021-02-09 12:10] LABS: Platelet Count 23 10^3/cmm (130-400)
[2021-02-09 12:11] LABS: Slide Review Slide Review Perform
[2021-02-09] MEDS: methylnaltrexone 12 /0.6 mL INJ 12 MG SUBCUT (12:15)
[2021-02-09] MEDS: HYDROcodone-acetaminophen 10-325 mg Tablet 1 TAB PO (16:30)
[2021-02-10 08:25] VITALS: BP 132/79; PULSE 89; RESP 16; TEMP 36.7; O2SAT 97
[2021-02-10] MEDS: acetaminophen 325 mg Tablet 650 MG PO (08:30)
[2021-02-10] MEDS: diphenhydrAMINE 25 mg Capsule PO (08:31)
== END 2021-02-16 23:59 | disposition home or self-care (01) ==
LOC: ONCMED 07:37
PROVIDERS: PCP Nurse Practitioner Family; Visit Provider Internal Medicine Medical Oncology
DX: D46.A Refractory cytopenia with multilineage dysplasia (principal); D61.818 Other pancytopenia; Z79.899 Other long term (current) drug therapy
CPT/HCPCS: 36430; 36592; 73030; 77075; 80053; 83615; 85025; 86850; 86900; 86920; 96372; 99214; J1940; J2212; J7050; P9053; P9058

== ENCOUNTER 2021-04-17 06:39 | Outpatient (RCR) | payer OTHER, SELFPAY ==
[2021-03-27 14:55] LABS: Hematocrit 25.6 % (42.0-52.0); Hemoglobin 8.1 g/dL (11.7-16.6); Lymphocytes # 0.5 10^3/uL (0.8-4.8); Lymphocytes % 16.7 %; Mean Corpuscular HGB Conc 31.6 g/dL (30.0-36.0); Mean Corpuscular Hemoglobin 30.3 pg (28.0-34.0); Mean Corpuscular Volume 95.9 fl (80-94); Mean Platelet Volume 12.1 fL (7.4-10.4); Monocytes # 0.2 10^3/uL (0.2-0.9); Monocytes % 6.9 %; Neutrophils # 2.09 10^3/uL (1.8-7.7); Neutrophils % 75.7 %; Nucleated Red Blood Cells % 0 %; Platelet Count 67 10^3/cmm (130-400); Red Blood Count 2.67 10^6/uL (4.1-5.3); Red Cell Distribution Width 20.3 % (12.1-15.1); White Blood Count 2.8 10^3/uL (4.0-10.0)
[2021-03-27 15:13] LABS: Alanine Aminotransferase 16 U/L (0-41); Albumin Level 3.8 g/dL (3.5-5.2); Alkaline Phosphatase 165 IU/L (40-130); Anion Gap 12.9 (5-19); Aspartate Amino Transferase 19 U/L (0-40); Blood Urea Nitrogen 9 mg/dL (6-20); Calcium 8.8 mg/dL (8.5-10.5); Carbon Dioxide 25 mmol/L (22-29); Chloride 105 mmol/L (98-107); Globulin 2.7 g/dL (1.3-4.6); Glucose 101 mg/dL (65-115); Lactate Dehydrogenase 351 U/L (135-225); Osmolality Calculated 287 mOsm/kg (285-295); Potassium 3.9 mmol/L (3.5-5.1); Sodium 139 mmol/L (136-145); Total Bilirubin 0.6 mg/dL (0.15-1.2); Total Protein 6.5 g/dL (6.6-8.7)
[2021-03-30 14:25] LABS: Eosinophils % 0.3 %; Hemoglobin 9.2 g/dL (11.7-16.6); Lymphocytes # 0.7 10^3/uL (0.8-4.8); Lymphocytes % 21.6 %; Mean Corpuscular HGB Conc 31.7 g/dL (30.0-36.0); Mean Corpuscular Hemoglobin 30.8 pg (28.0-34.0); Mean Platelet Volume 11.8 fL (7.4-10.4); Monocytes # 0.2 10^3/uL (0.2-0.9); Monocytes % 4.6 %; Neutrophils % 73.2 %; Nucleated Red Blood Cells % 0 %; Platelet Count 50 10^3/cmm (130-400); Red Blood Count 2.99 10^6/uL (4.1-5.3); Red Cell Distribution Width 20.4 % (12.1-15.1); White Blood Count 3.3 10^3/uL (4.0-10.0)
== END 2021-04-18 23:59 | disposition home or self-care (01) ==
LOC: ONCMED 06:39
PROVIDERS: PCP Nurse Practitioner Family; Visit Provider Internal Medicine Medical Oncology
DX: D46.A Refractory cytopenia with multilineage dysplasia (principal); D61.818 Other pancytopenia
CPT/HCPCS: 36592; 80053; 83615; 85025

== ENCOUNTER 2021-05-05 07:59 | Outpatient (RCR) | payer OTHER, SELFPAY ==
[2021-04-20 14:30] LABS: Hematocrit 20.9 % (42.0-52.0); Hemoglobin 7.1 g/dL (11.7-16.6); Mean Corpuscular Hemoglobin 30.6 pg (28.0-34.0); Mean Corpuscular Volume 90.1 fl (80-94); Mean Platelet Volume 10.8 fL (7.4-10.4); Red Blood Count 2.32 10^6/uL (4.1-5.3)
[2021-04-20 14:45] LABS: Platelet Count 12 10^3/cmm (130-400); White Blood Count 0.3 10^3/uL (4.0-10.0)
[2021-04-20 15:05] LABS: Eosinophils 0 %; Lymphocytes 92 %; Lymphocytes Absolute 0.3 10^3/cmm (1.2-3.4); Segmented Neutrophils 0 %; Total Cells Counted 100 (0-100)
[2021-04-20 15:06] LABS: Anisocytosis 1+; Hypochromasia 1+; Platelet Estimate Decreased (Normal)
[2021-04-21] VITALS (8 sets, daily range): BP systolic 108–112; BP diastolic 64–74; PULSE 66–72; RESP 18; TEMP 36.4–36.6; O2SAT 97–99
[2021-04-21] MEDS: diphenhydrAMINE 25 mg Capsule PO (08:35)
[2021-04-21] MEDS: acetaminophen 325 mg Tablet 650 MG PO (08:35)
[2021-04-21] MEDS: sodium chloride 0.9% 250 ML 999 ML IV (09:30)
[2021-04-21] MEDS: FUROsemide 10 mg/mL SDV 2mL 20 MG IV (11:25)
[2021-04-24 15:14] LABS: Hemoglobin 8.9 g/dL (11.7-16.6); Lymphocytes # 0.3 10^3/uL (0.8-4.8); Lymphocytes % 81.8 %; Mean Corpuscular HGB Conc 35.6 g/dL (30.0-36.0); Mean Corpuscular Hemoglobin 31.1 pg (28.0-34.0); Mean Corpuscular Volume 87.4 fl (80-94); Monocytes # 0.1 10^3/uL (0.2-0.9); Monocytes % 15.2 %; Nucleated Red Blood Cells % 0 %; Positive C 1; Positive M 1; Red Blood Count 2.86 10^6/uL (4.1-5.3); Red Cell Distribution Width 13.3 % (12.1-15.1)
[2021-04-24 15:33] LABS: White Blood Count 0.3 10^3/uL (4.0-10.0)
[2021-04-24 15:34] LABS: Neutrophils # 0.01 10^3/uL (1.8-7.7); Platelet Count 8 10^3/cmm (130-400)
[2021-04-25 08:30] VITALS: BP 102/63; PULSE 72; RESP 16; TEMP 36.5; O2SAT 98
[2021-04-25 09:15] VITALS: BP 107/52; PULSE 74; RESP 18; TEMP 36.6; O2SAT 97
[2021-04-27 14:50] LABS: Hematocrit 22.8 % (42.0-52.0); Hemoglobin 7.9 g/dL (11.7-16.6); Lymphocytes # 0.3 10^3/uL (0.8-4.8); Lymphocytes % 65.1 %; Mean Corpuscular HGB Conc 34.6 g/dL (30.0-36.0); Mean Corpuscular Hemoglobin 30.2 pg (28.0-34.0); Mean Platelet Volume 12.4 fL (7.4-10.4); Monocytes # 0.1 10^3/uL (0.2-0.9); Monocytes % 23.3 %; Neutrophils % 9.3 %; Nucleated Red Blood Cells % 0 %; Red Blood Count 2.62 10^6/uL (4.1-5.3); Red Cell Distribution Width 13.2 % (12.1-15.1)
[2021-04-27 15:22] LABS: Neutrophils # 0.04 10^3/uL (1.8-7.7); Platelet Count 9 10^3/cmm (130-400); Slide Review Slide Review Perform; White Blood Count 0.4 10^3/uL (4.0-10.0)
[2021-04-28] VITALS (13 sets, daily range): BP systolic 106–118; BP diastolic 53–64; PULSE 70–75; RESP 16–20; TEMP 36.4–36.5; O2SAT 16–99
[2021-04-28] MEDS: diphenhydrAMINE 25 mg Capsule PO (08:00)
[2021-04-28] MEDS: acetaminophen 325 mg Tablet 650 MG PO (08:00)
[2021-04-28] MEDS: sodium chloride 0.9% 250 ML 999 ML IV (08:00)
[2021-04-28] MEDS: FUROsemide 10 mg/mL SDV 2mL 20 MG IV (10:30)
[2021-05-04 14:30] LABS: Hematocrit 22.4 % (42.0-52.0); Hemoglobin 7.8 g/dL (11.7-16.6); Lymphocytes # 0.4 10^3/uL (0.8-4.8); Lymphocytes % 27.8 %; Mean Corpuscular HGB Conc 34.8 g/dL (30.0-36.0); Mean Corpuscular Volume 86.2 fl (80-94); Monocytes # 0.3 10^3/uL (0.2-0.9); Monocytes % 22.2 %; Neutrophils % 43.7 %; Nucleated Red Blood Cells % 0 %; Red Cell Distribution Width 13.2 % (12.1-15.1); White Blood Count 1.4 10^3/uL (4.0-10.0)
[2021-05-04 15:19] LABS: Platelet Count 3 10^3/cmm (130-400)
[2021-05-04 15:20] LABS: Neutrophils # 0.63 10^3/uL (1.8-7.7); Slide Review Slide Review Perform
[2021-05-05] VITALS (10 sets, daily range): BP systolic 121–128; BP diastolic 68–76; PULSE 74–76; RESP 18; TEMP 36.6–37.2; O2SAT 98–99
[2021-05-05 09:14] LABS: Alanine Aminotransferase 40 U/L (0-41); Albumin Level 3.9 g/dL (3.5-5.2); Alkaline Phosphatase 109 IU/L (40-130); Anion Gap 15.1 (5-19); Aspartate Amino Transferase 37 U/L (0-40); Blood Urea Nitrogen 11 mg/dL (6-20); Calcium 8.8 mg/dL (8.5-10.5); Carbon Dioxide 23 mmol/L (22-29); Chloride 104 mmol/L (98-107); Globulin 2.4 g/dL (1.3-4.6); Glomerular Filtration Rate 123.1 mL/min (90-130); Glucose 148 mg/dL (65-115); Magnesium 1.7 mg/dL (1.7-2.3); Osmolality Calculated 290 mOsm/kg (285-295); Potassium 3.1 mmol/L (3.5-5.1); Sodium 139 mmol/L (136-145); Total Bilirubin 0.7 mg/dL (0.15-1.2); Total Protein 6.3 g/dL (6.6-8.7)
== END 2021-05-19 23:59 | disposition home or self-care (01) ==
LOC: ONCMED 07:59
PROVIDERS: PCP Nurse Practitioner Family; Visit Provider Internal Medicine Medical Oncology
DX: D46.A Refractory cytopenia with multilineage dysplasia (principal); D61.818 Other pancytopenia
CPT/HCPCS: 36430; 36592; 80053; 83735; 85007; 85025; 86850; 86900; 86920; 99211; J1940; J7050; P9037; P9053; P9058